=== PATIENT | female | born 1990 | race African-American/Black ===

== ENCOUNTER 2016-08-30 18:11 | Inpatient (IN) ==
--- NOTE | 2016-08-30 18:52 | Emergency Department Note ---
Arrival - Arrival Chief Complaint: Non-Specific Stated Complaint: WHITE PART EYES ARE YELLOW/DARK URINE ED Nursing Triage Note: reports that she noticed this morning that the whites of her eyes were yellow. eyes are noted slightly yellow in triage. pt reports no appetite for four days but no other s/s Mode of Arrival: Ambulatory Limitations: No Limitations Source: Patient Time Seen by Provider: 08/30/16 18:44 - History of Present Illness HPI Narrative: This is a 25-year-old white female who is complaining of the whites of her eyes being yellow that she noticed this morning, and she states that her urine is dark. She states that she has had a loss of appetite for about the last 4 days , but denies any vomiting or abdominal pain. She did state that she had one episode of diarrhea today. She denies any fevers, any liver disease or any other problems. Onset (ago): day(s) (4) Severity: mild Date of Last Menstrual Period: 07/30/16 Allergies/Adverse Reactions: Allergies Allergy/AdvReac Type Severity Reaction Status Date / Time No Known Allergies Allergy Verified 08/31/14 11:21 Home Medications: Home Medications Medication Instructions Recorded Confirmed Type No Known Home Medications [No 08/30/16 08/30/16 History Known Home Medications] Review of System - Review of System 12 point system: reviewed and no additional remarkable complaints except as stated - Review of System Constitutional: Present: as per HPI. Absent: fever Eyes: Present: as per HPI Gastrointestinal: Present: as per HPI, diarrhea Genitourinary female: Present: as per HPI Medical,Surgical,& Family Hx - Social History Smoking Status: Never smoker Exam Physical Examination: - General General appearance: [alert, in no apparent distress] - Head Head exam: [Present: atraumatic, normocephalic, normal inspection] - Eye Eye exam: [Present: mildly icteric, PERRL, EOMI] - ENT ENT exam: [Present: normal exam, normal oropharynx, mucous membranes moist, TM' s normal bilaterally, normal external ear exam] - Neck Neck exam: [Present: normal inspection, full ROM, trachea midline] - Chest Chest inspection: [Present: normal inspection, symmetric chest wall rise] - Respiratory Respiratory exam: [Present: normal lung sounds bilaterally] - Cardiovascular Cardiovascular exam: [Present: regular rate, normal rhythm, normal heart sounds] - Abdominal Exam Abdominal exam: [Present: soft, normal bowel sounds, there is no pain on palpation] - Extremities Exam Extremities exam: [Present: normal inspection, full ROM] - Back Exam Back exam: [Present: normal inspection, full ROM] - Neurological Exam Neurological exam: [Present: alert, oriented X3] - Psychiatric Psychiatric exam: [Present: normal affect, normal mood] - Skin Skin exam: [Present: warm, dry, intact, normal color] Vital Signs: Vital Signs Temperature 97.4 F L 08/30/16 18:34 Pulse Rate 69 08/30/16 19:46 Respiratory Rate 20 08/30/16 19:46 Blood Pressure 120/86 08/30/16 19:46 O2 Sat by Pulse Oximetry 100 08/30/16 19:46 Course - Consultations Consultation #1: I spoke with hospitalist services about this patient and Dr Hopper will see the patient in nonurgent Time: 19:51 (Dr Hopper here at 2000) Results - Labs CBC & BMP: 08/30/16 19:03 08/30/16 19:03 Lab Results: I have reviewed the patients labs Disposition Clinical Impression: ALT (SGPT) level raised, UTI (urinary tract infection) Case discussed with: patient Disposition: Still a Patient
[2016-08-30 19:10] LABS: Basophils % 0.5 % (0.0-0.8); Eosinophils # 0.1 10*3/uL (0.0-0.87); Hematocrit 33.9 VOL% (35.7-47.0); Hemoglobin 10.9 GM/DL (12.0-16.0); Immature Granulocytes % 0.5 %; Immature Granulocytes Absolute 0.02 #; Lymphocytes # 1.6 10*3/uL (1.4-4.0); Lymphocytes % 36.3 % (21.3-54.2); Mean Corpuscular HGB Conc 32.2 GM/DL (32-36); Mean Corpuscular Hemoglobin 28 PG (27-34); Mean Corpuscular Volume 86.7 FL (87-102); Mean Platelet Volume 11.5 FL (9.6-12.0); Monocytes # 0.3 10*3/uL (0.11-0.8); Monocytes % 7.8 % (1.7-12.7); Neutrophils # 2.3 10*3/uL (1.4-7.4); Neutrophils % 51.9 % (38.7-73.9); Platelet Count 239 T/CUMM (130-400); Red Blood Count 3.91 MC/CUMM (3.8-5.5); Red Cell Distribution Width 16.6 % (9.3-17.3); White Blood Count 4.4 T/CUMM (4-12)
[2016-08-30 19:15] LABS: Apearance,Urine Slightly Hazy (Clear); Bacteria,Urine Moderate /HPF (Few); Blood, Urine Negative (Negative); Glucose,Urine (UA) Negative (Negative); Ketones,Urine 20 mg/dL (Negative); Mucus,Urine Occasional /LPF (Occasional); Nitrite,Urine Negative (Negative); Protein,Urine Negative; RBC,Urine 2 /HPF (0-4); Squamous Epithelial Cell,Urine Few /HPF (0-10); Transitional Epi Cells,Urine Occasional /HPF (<1); Urine Color Amber (Yellow); WBC,Urine 5 /HPF (0-6)
[2016-08-30 19:17] LABS: Bilirubin,Urine Moderate mg/dL (Negative)
[2016-08-30 19:32] LABS: Albumin 3.4 G/DL (3.4-5.0); Bilirubin,Total 6.6 MG/DL (0.2-1.0); Calcium 9.4 MG/DL (8.5-10.1); Osmolality,Calculated 270.8 MOS/KG (273-304); Potassium 3.7 MMOL/L (3.5-5.1); Total Protein 7.9 G/DL (6.4-8.3)
[2016-08-30 20:09] LABS: PT Patient Result 10.3 SECS; Partial Thromboplastin Time 30.1 SECS (0-40)
[2016-08-30 20:29] LABS: Barbiturates Screen,Urine Negative (Negative); Benzodiazepines Screen,Urine Negative (Negative); Cannabinoid Screen,Urine Negative (Negative); Opiate Screen,Urine Negative (Negative); Phencyclidine Screen,Urine Negative (Negative)
--- NOTE | 2016-08-30 20:29 | Hospitalist History & Physical ---
Assessment and Plan (1) Elevated liver enzymes Status: Acute Assessment and plan: PBC vs sarcoidosis vs obstruction vs tylenol misuse. AMA, leonela level, cxr, heptatis panel, acetaminophen level, Dr. Sinclair, Current Visit: Yes (2) Total bilirubin, elevated Status: Acute Assessment and plan: elevated direct bilirubin, abdomen us ordered Current Visit: Yes (3) Anemia Status: Acute Assessment and plan: iron studies Current Visit: Yes (4) Snoring Status: Acute Assessment and plan: most likely has asa Current Visit: Yes (5) Migraine Status: Acute Assessment and plan: due to asa Current Visit: Yes (6) UTI (urinary tract infection) Status: Acute Assessment and plan: rocephin IV Current Visit: Yes History of Present Illness Chief complaint: jaundice History of present illness: Ms. Cardoza is a 25 year obese black emale who is complaining of the whites of her eyes being yellow that she noticed over the last 5 days. Her started turning dark yellow yesterday. She has had nausea over the last several days without a good appetite. She takes acetaminophen 1000 mg po daily for migraine heads. She reports fatigue, migraine and snores. She is morbidly obese. Home Medications Medication Instructions Recorded Confirmed Type No Known Home Medications [No 08/30/16 08/30/16 History Known Home Medications] Allergies Allergy/AdvReac Type Severity Reaction Status Date / Time No Known Allergies Allergy Verified 08/31/14 11:21 Medical,Surgical,& Family Hx - Medical History Respiratory: History of: Obstructive Sleep Apnea Hematology: History of: Anemia Other: History of: Miscellaneous Medical Problems (transfusion in 2014 ) - Surgical History Reproductive Surgeries: Surgical HX of;: Section, Tubal Ligation - Family History Family History: Reports;: Family Diabetes, Family Stroke Denies;: Family Cancer - Social History Smoking Status: Never smoker Frequency of Alcohol Use: None Type of Drug Use: None Marital Status: Lives With:: Spouse Functional capacity: independent ambulation - Constitutional Constitutional: Present: fatigue, headache(s). Absent: fever(s) - EENT Eyes: Absent: blurry vision, diplopia Ears: Absent: decreased hearing, ear discharge Nose, mouth and throat: Present: headache(s). Absent: sore throat - Cardiovascular Cardiovascular: Absent: chest pain at rest, dyspnea, edema - Respiratory Respiratory: Present: snoring. Absent: dyspnea, dyspnea on exertion - Gastrointestinal Gastrointestinal: Present: diarrhea, nausea, jaundice. Absent: abdominal pain, constipation, vomiting - Genitourinary Genitourinary: Present: other (urine dark ). Absent: difficulty urinating, dysuria - Neurological Neurological: Present: headache(s). Absent: syncope - Psychiatric Psychiatric: Present: depression. Absent: anxiety - Endocrine Endocrine: Present: fatigue, heat intolerance - Hematologic/Lymphatic Hematologic/Lymphatic: Present: easy bleeding, easy bruising Exam - Constitutional Vitals: Period Temp Pulse Resp BP Sys/Silvestre Pulse Ox Last 24 Hr 97.4 F 69-79 18-20 120-136/83-86 99-100 General appearance: no acute distress, morbidly obese - Head Head exam: Present: normal inspection, normocephalic - Eye Eye exam: Present: EOMI, scleral icterus Pupils: Present: HANNAH, normal accommodation - Neck Neck exam: Absent: lymphadenopathy, thyromegaly - Respiratory Respiratory exam: Present: clear to auscultation bilaterally. Absent: rhonchi, wheezes - Cardiovascular Cardiovascular exam: Present: regular rate and rhythm. Absent: systolic murmur - GI/Abdominal GI/Abdominal exam: Present: normal bowel sounds, soft. Absent: organomegaly, tenderness - Extremities Exam Extremities exam: Present: normal inspection, normal capillary refill - Neurological Exam Neurological exam: Present: alert, oriented X3, CN II-XII intact, reflexes normal. Absent: motor sensory deficit - Psychiatric Psychiatric exam: Present: normal affect, normal mood - Skin Skin exam: Present: normal color, warm Results - Labs CBC & BMP: 08/30/16 19:03 08/30/16 19:03 Lab Results: I have reviewed the past 24 hour labs
--- NOTE | 2016-08-30 20:48 | Ultrasound Report ---
History: Elevated liver enzymes. Elevated bilirubin Date: 08/30/2016 Study: Abdominal ultrasound complete Comparison exam: No previous Real-time ultrasound images are captured and archived. There is no aortic aneurysm. IVC is generally patent. There is hepatopedal flow in the portal vein. There are numerous highly echogenic foci with posterior acoustic shadowing compatible with gallstones in the lumen of the gallbladder. There is no sonographic Martínez sign. There is some mild intrahepatic biliary ectasia. The common bile duct measures 6 mm diameter. There are some highly echogenic foci with posterior acoustic shadowing compatible with choledochal stones in the lumen of the gallbladder. The liver measures normal in size at 15.0 cm length. The pancreas and kidneys appear normal. The right kidney measures 10.7 cm length; the left measures 12.0 cm. The spleen measures 11.1 x 4.0 x 3.4 cm and appears normal. Impression: Cholelithiasis and choledocholithiasis PROCEDURE INTERPRETED AT [facility] DEPARTMENT OF RADIOLOGY Final Report Signed by: Dr. Marily Trivedi
[2016-08-30 20:58] LABS: % Iron Saturation 24.7 % (18-50); Ferritin 43.3 ng/ml (8-252)
--- NOTE | 2016-08-30 21:21 | XRay Report ---
History: Sarcoidosis Date: 08/30/2016 Study: Chest x-ray PA and lateral Comparison exam: No previous The cardiomediastinal silhouette and pulmonary vasculature are unremarkable. The lungs and pleural spaces are clear. The osseous structures are unremarkable. Impression: No acute cardiopulmonary process PROCEDURE INTERPRETED AT [facility] DEPARTMENT OF RADIOLOGY Final Report Signed by: Dr. Marily Trivedi
[2016-08-30 21:31] LABS: Hepatitis A Ab IgM Quant 0.06 Index; Hepatitis A Ab IgM Result Negative (Negative); Hepatitis B Core IgM Quant 0.24 Index; Hepatitis B Core IgM Result Negative (Negative); Hepatitis B Surface Ag Quant 0.28 Index; Hepatitis B Surface Ag Result Negative (Negative); Hepatitis C Virus Ab Quant 0.12 Index; Hepatitis C Virus Ab Result Negative (Negative)
[2016-08-30] MEDS: cefTRIAXone 1,000 MG in SODIUM CHLORIDE 0.9% 100 ML IV SCH (22:15)
[2016-08-30] MEDS: SODIUM CHLORIDE 0.45% 1,000 ML IV SCH (23:08)
[2016-08-30 23:33] LABS: Thyroid Stimulating Hormone 1.62 uIU/ml (0.358-3.74)
[2016-08-31 00:18] LABS: HIV Antigen/Antibody Result Nonreactive (Nonreactive)
[2016-08-31 05:06] LABS: Basophils % 0.6 % (0.0-0.8); Eosinophils # 0.1 10*3/uL (0.0-0.87); Eosinophils % 3.4 % (0.00-10.9); Hematocrit 32.8 VOL% (35.7-47.0); Hemoglobin 10.6 GM/DL (12.0-16.0); Immature Granulocytes % 0.6 %; Immature Granulocytes Absolute 0.02 #; Lymphocytes # 1.5 10*3/uL (1.4-4.0); Lymphocytes % 40.8 % (21.3-54.2); Mean Corpuscular HGB Conc 32.3 GM/DL (32-36); Mean Corpuscular Hemoglobin 28 PG (27-34); Mean Corpuscular Volume 85.2 FL (87-102); Mean Platelet Volume 11.9 FL (9.6-12.0); Monocytes # 0.4 10*3/uL (0.11-0.8); Monocytes % 9.8 % (1.7-12.7); Neutrophils # 1.6 10*3/uL (1.4-7.4); Neutrophils % 44.8 % (38.7-73.9); Platelet Count 226 T/CUMM (130-400); Red Blood Count 3.85 MC/CUMM (3.8-5.5); Red Cell Distribution Width 16.6 % (9.3-17.3); White Blood Count 3.6 T/CUMM (4-12)
[2016-08-31 05:34] LABS: Albumin 2.9 G/DL (3.4-5.0); Bilirubin,Total 5.8 MG/DL (0.2-1.0); Calcium 8.9 MG/DL (8.5-10.1); Osmolality,Calculated 268.8 MOS/KG (273-304); Potassium 3.7 MMOL/L (3.5-5.1); Total Protein 6.3 G/DL (6.4-8.3)
[2016-08-31] MEDS: SODIUM CHLORIDE 0.45% 1,000 ML IV SCH ×2 (07:35→16:28)
--- NOTE | 2016-08-31 08:30 | Gastrointestinal Consult Note ---
Assessment and Plan (1) Choledocholithiasis with obstruction Status: Acute Assessment and plan: This patient has sonographic evidence of common bile duct dilation, and biochemical evidence of obstruction as well although this appears to be improving over the weekend. There is gallbladder lumen sludge noted and a common bile duct of 6 mm. The patient is having no abdominal pain whatsoever. I believe she likely has chronic cholecystitis and does need to have her gallbladder removed in order to keep episodes like this from occurring again in the future. The liver function tests are slowly resolving. She has been offered discharge and follow-up ERCP with further follow-up for cholecystectomy but wishes to stay through the long holiday weekend and have her workup expedited with ERCP on Friday and cholecystectomy to follow at some point. I do not do ERCPs and so we will wait until that date for Dr. Bernal to perform this, Dr. Jo Ann Tsai is education program associate this weekend and will be consulted for the cholecystectomy. Current Visit: Yes (2) Elevated liver enzymes Status: Acute Assessment and plan: The patient does not use IV drugs, her hepatitis A, B, and C are all negative, there is no family history of liver derangements that she knows of. She does not have hemochromatosis, we will will check her for lupus to see if her HAMLET is elevated to rule out autoimmune hepatitis. This typically does not produce dilation of the common bile duct though and I do not suspect that it is present but her liver function tests are so elevated it seems reasonable to check. Again plan is ERCP on Friday with cholecystectomy to follow, per Dr. Cherry. Again this can be managed as an outpatient should the patient desired discharge. Low-fat diet seems appropriate as she is pain-free. We will follow serial liver function testing. Current Visit: Yes (3) Obesity (BMI 35.0-39.9 without comorbidity) Status: Acute Assessment and plan: The patient needs to lose some weight. The patient is already been checked for and is negative which will facilitate the ERCP. Current Visit: Yes History of Present Illness Chief complaint: Painless jaundice caused by choledocholithiasis History of present illness: Ms. Cardoza is a 25 year old female who is a very pleasant 25-year-old black female who is moderately obese and has been noticing nausea over the last 5 days along with 3 days of dark urine and 3 days of her eyes turning yellow. She does not have any abdominal pain. She is not aware of any other family members who have gallbladder resection. She does take Tylenol per day for her migraine headaches. She has not had any history of IV drug abuse, history of travel to [place] or [place], no tattoos or accidental needle sticks, and has never had an episode like this before. There is no family history of liver disease that she knows of. She has had 4 children already. Laboratories demonstrate the following: Normal white blood cell count at 3.6. INR of 1.0, normal kidney function, iron saturation 25%, negative hepatitis A, B, and C panel, negative urine drug screen, ALT of 731 at peak, AST of 533, alkaline phosphatase of 735, and total bilirubin is 6.6 with a direct fraction of 5.6. Her HIV panel is negative. We still need to check this patient for lupus. Abdominal ultrasound shows a sonographic negative Martínez sign however liver is slightly enlarged at 15 cm with a normal-appearing pancreas and kidney and common bile duct measures 6 mm in diameter numerous highly echogenic foci are noted with posterior shadowing compatible with gallstones. The impression was 1 of choledocholithiasis and cholelithiasis. Judging from the appearance of her eyes today it appears that she is clearing the ductal blockage. Again she has 0/10 abdominal pain. Home Medications Medication Instructions Recorded Confirmed Type No Known Home Medications [No 08/30/16 08/30/16 History Known Home Medications] Allergies Allergy/AdvReac Type Severity Reaction Status Date / Time No Known Allergies Allergy Verified 08/31/14 11:21 Medical,Surgical,& Family Hx - Medical History Respiratory: History of: Obstructive Sleep Apnea Hematology: History of: Anemia Other: History of: Miscellaneous Medical Problems (transfusion in 2015 ) - Surgical History Reproductive Surgeries: Surgical HX of;: Section, Tubal Ligation - Family History Family History: Reports;: Family Diabetes (father), Family Hypertension (mother) , Family Stroke Denies;: Family Cancer - Social History Smoking Status: Never smoker Frequency of Alcohol Use: None Type of Drug Use: None Review of systems: Constitutional: Denies fever, chills, but does have some mild nausea, without vomiting, she is having some pruritus leading to scratches on her thighs Eyes: Denies dry eyes, however she does have scleral icterus HENT: Positive for migraine headaches Cardiovascular: Denies acute chest pain and claudication Respiratory: Denies shortness of breath, wheezing, and difficulty breathing, denies cough Gastrointestinal: As noted in the HPI Genitourinary: Denies dysuria and hematuria Neurologic: Denies vision loss, and loss of sensation Musculoskeletal: Denies joint swelling, joint stiffness, and muscular weakness Psychiatric: Denies depression and yamilex symptoms Heme-Lymph: Denies easy bruising, lymph node enlargement or tenderness, night sweats, excessive bleeding Allergies-immunologic: Denies pruritus and rhinorrhea Exam - Constitutional Vitals: Period Temp Pulse Resp BP Sys/Silvestre Pulse Ox Last 24 Hr 97.4 F-98.0 F 59-79 16-20 120-136/62-86 96-100 General appearance: over weight Exam: Constitutional: Well-developed, well-nourished, alert, and in no acute distress Head and face: Head: Normocephalic atraumatic Eyes: Conjunctiva without injection, the patient does have some evidence of scleral icterus, although this is milder than I would have expected , pupils equal and round bilaterally Ears: Intact to conversation in both ears Nose: External appearance is normal, nares patent Mouth: Oral mucous membranes moist without erythema dentition noted to be without erosion Neck: Normal appearance, no masses or tenderness, trachea midline Thyroid: Gland midline and appropriate size for age Respiratory: Normal respiratory effort, clear to auscultation without wheezes, rhonchi or rales Cardiovascular: Regular rate and rhythm, normal S1, S2, the exam is without rubs, murmurs or gallops. Gastrointestinal: Nontender to palpation, normal active bowel sounds, tone normal without rigidity or guarding, no masses present, no hepatomegaly, no spleen tip felt. Stool was present but grossly guaiac negative on rectal exam obtained, good tone. Lymphatic: Neck without adenopathy, axilla without lymphadenopathy present Musculoskeletal: Right and left lower extremities without evidence of edema Skin and subcutaneous tissue: Excoriation is noted on the bilateral thighs laterally from patient scratching, no rashes or ulcerations noted, normal skin turgor, digits and nails without clubbing/cyanosis/deformities. Neurologic: The patient is grossly oriented to person place and time, cranial nerves show tongue movements are normal with normal tongue extrusion midline, light touch sensation is intact. Psychiatric: No hallucinations or delusions are present, does not appear depressed Results - Labs CBC & BMP: 08/31/16 04:40 08/31/16 04:40
--- NOTE | 2016-08-31 09:04 | Hospitalist Progress Note ---
Assessment and Plan - Time spent with patient Time spent with patient: Less than 30 minutes (1) Choledocholithiasis with obstruction Status: Acute Assessment and plan: Appreciate input from gastroenterology. Will continue current therapy, general surgery has been consulted for possible cholecystectomy and Dr. Bernal for possible ERCP on Friday. Current Visit: Yes (2) UTI (urinary tract infection) Status: Acute Assessment and plan: Urine culture does reveal gram-negative rods. Continue IV antibiotics. Current Visit: Yes Hospitalist: Subjective Interval history: Chart reviewed and patient examined. Gastroenterology consultation noted. Patient is doing well without any further complaints at this time. Exam - Constitutional Vitals: Period Temp Pulse Resp BP Sys/Silvestre Pulse Ox Last 24 Hr 97.4 F-98.0 F 59-79 16-20 120-136/62-86 96-100 General appearance: no acute distress - Head Head exam: Present: normocephalic, atraumatic - Eye Eye exam: Present: EOMI Pupils: Present: HANNAH - ENT ENT exam: Present: normal exam - Neck Neck exam: Present: normal inspection - Respiratory Respiratory exam: Present: clear to auscultation bilaterally - Cardiovascular Cardiovascular exam: Present: regular rate and rhythm. Absent: tachycardia - GI/Abdominal GI/Abdominal exam: Present: normal bowel sounds, soft. Absent: mass, tenderness - Extremities Exam Extremities exam: Absent: calf tenderness, edema - Back Exam Back exam: Present: normal inspection - Neurological Exam Neurological exam: Present: alert, oriented X3, CN II-XII intact. Absent: motor sensory deficit - Psychiatric Psychiatric exam: Present: normal affect, normal mood. Absent: agitated, anxious - Skin Skin exam: Present: warm, dry. Absent: rash Results - Labs CBC & BMP: 08/31/16 04:40 08/31/16 04:40 Lab Results: I have reviewed the past 24 hour labs - Diagnostic Findings Procedure: Ultrasound: report reviewed by me
--- NOTE | 2016-08-31 10:59 | General Surgery Consult Note ---
Assessment and Plan - Time spent with patient Time spent with patient: Less than 30 minutes (1) Choledocholithiasis with obstruction Status: Acute Assessment and plan: She appears to have biliary obstruction causing her jaundice. She is largely asymptomatic other than the jaundice. There does not appear to be associated cholangitis. I discussed the role of cholecystectomy which would be done to prevent recurrences after her ERCP. I do not see a role for cholecystectomy prior to ERCP in this case. Current Visit: Yes Qualifiers: Cholecystitis presence: without cholecystitis Qualified Code(s): K80.51 - Calculus of bile duct without cholangitis or cholecystitis with obstruction History of Present Illness Chief complaint: Jaundice History of present illness: Ms. Cardoza is a 25 year old female Who came to the emergency room because she noticed her eyes turning yellow. She states that she has not really had abdominal pain. She has not really been feeling well. She does not know of any aggravating or alleviating factors had fever or chills. She has had dark urine. She had an ultrasound which showed gallstones and also a dilated common bile duct with a stone in her bile duct. She has elevated liver function test. She has been seen by GI and there are plans for an ERCP Home Medications Medication Instructions Recorded Confirmed Type No Known Home Medications [No 08/30/16 08/30/16 History Known Home Medications] Allergies Allergy/AdvReac Type Severity Reaction Status Date / Time No Known Allergies Allergy Verified 08/31/14 11:21 Medical,Surgical,& Family Hx - Medical History Respiratory: History of: Obstructive Sleep Apnea Hematology: History of: Anemia Other: History of: Miscellaneous Medical Problems (transfusion in 2014 ) - Surgical History Reproductive Surgeries: Surgical HX of;: Section, Tubal Ligation - Family History Family History: Reports;: Family Diabetes (father), Family Hypertension (mother) , Family Stroke Denies;: Family Cancer - Social History Smoking Status: Never smoker Frequency of Alcohol Use: None Type of Drug Use: None - Constitutional Constitutional: Absent: anorexia, chills, fever(s) - EENT Nose, mouth and throat: Absent: dysphagia, sore throat - Cardiovascular Cardiovascular: Absent: chest pain at rest, chest pain with activity, dyspnea, dyspnea on exertion, syncope - Respiratory Respiratory: Absent: cough, dyspnea, hemoptysis, dyspnea on exertion - Gastrointestinal Gastrointestinal: Present: jaundice. Absent: abdominal pain, bloating, hematemesis, hematochezia, nausea, vomiting - Genitourinary Genitourinary: Absent: hematuria - Musculoskeletal Musculoskeletal: Absent: back pain - Neurological Neurological: Absent: focal weakness, syncope - Endocrine Endocrine: Absent: polyuria Hematologic/Lymphatic: Absent: easy bruising Exam - Constitutional Vitals: Period Temp Pulse Resp BP Sys/Silvestre Pulse Ox Last 24 Hr 97.1 F-98.0 F 59-79 16-20 104-136/49-86 96-100 General appearance: no acute distress, morbidly obese - Head Head exam: Present: normocephalic - Eye Eye exam: Present: scleral icterus - ENT Mouth exam: Present: normal voice - Neck Neck exam: Present: trachea midline. Absent: tenderness - Respiratory Respiratory exam: Present: clear to auscultation bilaterally. Absent: accessory muscle use - Cardiovascular Cardiovascular exam: Present: RRR - GI/Abdominal GI/Abdominal exam: Present: soft. Absent: distended, guarding, mass, Martínez's sign, tenderness, rebound - Neurological Exam Neurological exam: Present: alert, oriented X3. Absent: motor sensory deficit Speech: Present: normal - Skin Skin exam: Present: normal color Results - Labs CBC & BMP: 08/31/16 04:40 08/31/16 04:40 Lab Results: I have reviewed the past 24 hour labs - Diagnostic Findings Procedure: Ultrasound: report reviewed by me
[2016-08-31] MEDS: ONDANSETRON 4 MG/2 ML VIAL IV PRN (21:13)
[2016-08-31] MEDS: cefTRIAXone 1,000 MG in SODIUM CHLORIDE 0.9% 100 ML IV SCH (21:16)
[2016-08-31] MEDS ORDERED: diphenhydrAMINE CAP 50 MG CAPSULE PO PRN (21:23)
--- NOTE | 2016-08-31 21:50 | Event Note ---
I was called to get the order Benadryl for itching for itching. I have ordered the Benadryl 20 mg p.o. as needed for itching but noted patient is admitted for obstructive jaundice I have ordered cholestyramine 4 g daily may need to be titrated
[2016-09-01] MEDS: SODIUM CHLORIDE 0.45% 1,000 ML IV SCH ×4 (00:20→23:38)
[2016-09-01 05:54] LABS: Albumin 2.8 G/DL (3.4-5.0); Calcium 8.9 MG/DL (8.5-10.1); Osmolality,Calculated 273.5 MOS/KG (273-304); Potassium 3.9 MMOL/L (3.5-5.1); Total Protein 6.3 G/DL (6.4-8.3)
[2016-09-01 05:55] LABS: Albumin 2.9 G/DL (3.4-5.0); Bilirubin,Indirect 1.2 MG/DL (0.0-1.0); Bilirubin,Total 5.2 MG/DL (0.2-1.0); Total Protein 6.4 G/DL (6.4-8.3)
[2016-09-01] MEDS: diphenhydrAMINE CAP 25 MG CAPSULE PO PRN ×2 (08:22→21:25)
[2016-09-01] MEDS: CHOLESTYRAMINE 4 GM PACK PO SCH (08:22)
--- NOTE | 2016-09-01 08:33 | Hospitalist Progress Note ---
Assessment and Plan - Time spent with patient Time spent with patient: Less than 30 minutes (1) Choledocholithiasis with obstruction Status: Acute Assessment and plan: Appreciate input from gastroenterology. Will continue current therapy, general surgery has been consulted for possible cholecystectomy and Dr. Bernal for possible ERCP on Friday. 09/01/16: Continuing current therapy and awaiting ERCP on Friday. Appreciate input from gastroenterology and general surgery. Current Visit: Yes Qualifiers: Cholecystitis presence: without cholecystitis Qualified Code(s): K80.51 - Calculus of bile duct without cholangitis or cholecystitis with obstruction (2) UTI (urinary tract infection) Status: Acute Assessment and plan: Urine culture does reveal gram-negative rods. Continue IV antibiotics. Awaiting final ID and sensitivity. Current Visit: Yes Hospitalist: Subjective Interval history: Patient had a mild headache as well as some itching last night which is essentially resolved. She denies any abdominal pain, nausea, vomiting, diarrhea , constipation. Appetite is somewhat decreased but she is tolerating her diet. Exam - Constitutional Vitals: Period Temp Pulse Resp BP Sys/Silvestre Pulse Ox Last 24 Hr 97.6 F-98.5 F 54-90 16-18 98-116/54-83 98-100 General appearance: no acute distress - Head Head exam: Present: normocephalic, atraumatic - Eye Eye exam: Present: EOMI Pupils: Present: HANNAH - ENT ENT exam: Present: normal exam - Neck Neck exam: Present: normal inspection - Respiratory Respiratory exam: Present: clear to auscultation bilaterally - Cardiovascular Cardiovascular exam: Present: regular rate and rhythm - GI/Abdominal GI/Abdominal exam: Present: normal bowel sounds, soft. Absent: mass, tenderness - Extremities Exam Extremities exam: Absent: calf tenderness, edema - Back Exam Back exam: Present: normal inspection - Neurological Exam Neurological exam: Present: alert, oriented X3, CN II-XII intact. Absent: motor sensory deficit - Psychiatric Psychiatric exam: Present: normal affect, normal mood. Absent: agitated, anxious - Skin Skin exam: Present: warm, dry. Absent: rash Results - Labs CBC & BMP: 08/31/16 04:40 09/01/16 04:50 Lab Results: I have reviewed the past 24 hour labs
--- NOTE | 2016-09-01 09:46 | Gastrointestinal Progress Note ---
Assessment and Plan (1) Choledocholithiasis with obstruction Status: Acute Assessment and plan: This patient has sonographic evidence of common bile duct dilation, and biochemical evidence of obstruction as well although this appears to be improving over the weekend. There is gallbladder lumen sludge noted and a common bile duct of 6 mm. The patient is having no abdominal pain whatsoever. I believe she likely has chronic cholecystitis and does need to have her gallbladder removed in order to keep episodes like this from occurring again in the future. The liver function tests are slowly resolving. She has been offered discharge and follow-up ERCP with further follow-up for cholecystectomy but wishes to stay through the long holiday weekend and have her workup expedited with ERCP on Friday and cholecystectomy to follow at some point. I do not do ERCPs and so we will wait until that date for Dr. Bernal to perform this, Dr. Jo Ann Tsai is in home sales consultant this weekend and will be consulted for the cholecystectomy. 09/01/16--Awaiting the return of Dr. Bernal on Friday in order to perform ERCP, to be followed by surgery in the near future. She has no new complaints, otherwise doing well. Current Visit: Yes Qualifiers: Cholecystitis presence: without cholecystitis Qualified Code(s): K80.51 - Calculus of bile duct without cholangitis or cholecystitis with obstruction (2) Elevated liver enzymes Status: Acute Assessment and plan: The patient does not use IV drugs, her hepatitis A, B, and C are all negative, there is no family history of liver derangements that she knows of. She does not have hemochromatosis, we will will check her for lupus to see if her HAMLET is elevated to rule out autoimmune hepatitis. This typically does not produce dilation of the common bile duct though and I do not suspect that it is present but her liver function tests are so elevated it seems reasonable to check. Again plan is ERCP on Friday with cholecystectomy to follow, per Dr. Cherry. Again this can be managed as an outpatient should the patient desired discharge. Low-fat diet seems appropriate as she is pain-free. We will follow serial liver function testing. 09/01/16--These are slowly drifting downward. I suspect they will not be completely normal by the time Friday morning arrives. The patient is due to get her ERCP on 09/03/[address] Bernal. Current Visit: Yes (3) Obesity (BMI 35.0-39.9 without comorbidity) Status: Acute Assessment and plan: The patient needs to lose some weight. The patient is already been checked for and is negative which will facilitate the ERCP. 09/01/16--No change from above. Current Visit: Yes Gastroenterology - PN: Subj Interval history: No complaints, no abdominal pain, never did have any abdominal pain, urine still looks rather dark. Exam (Progress Note) - Constitutional Vitals: Period Temp Pulse Resp BP Sys/Silvestre Pulse Ox Last 24 Hr 97.6 F-98.5 F 54-90 16-18 98-116/54-83 98-100 General appearance: no acute distress - Eye Eye exam: Present: scleral icterus (Slight hint of scleral icterus) Pupils: Present: HANNAH - Respiratory Respiratory exam: Present: clear to auscultation bilaterally - Cardiovascular Cardiovascular exam: Present: regular rate and rhythm - GI/Abdominal GI/Abdominal exam: Present: normal bowel sounds, soft. Absent: distended, tenderness, rebound - Extremities Exam Extremities exam: Present: normal inspection - Neurological Exam Neurological exam: Present: alert, oriented X3 - Psychiatric Psychiatric exam: Present: normal affect, normal mood - Skin Skin exam: Present: warm Results - Labs CBC & BMP: 08/31/16 04:40 09/01/16 04:50
--- NOTE | 2016-09-01 10:14 | General Surgery Progress Note ---
Assessment and Plan (1) Choledocholithiasis with obstruction Status: Acute Assessment and plan: She appears to have biliary obstruction causing her jaundice. She is largely asymptomatic other than the jaundice. There does not appear to be associated cholangitis. I discussed the role of cholecystectomy which would be done to prevent recurrences after her ERCP. I do not see a role for cholecystectomy prior to ERCP in this case. 09/01: She feels better but is itching from her jaundice. She will need an ERCP. Following this we can look at laparoscopic cholecystectomy to prevent recurrences. I do not see evidence of cholangitis at this time. Current Visit: Yes Qualifiers: Cholecystitis presence: without cholecystitis Qualified Code(s): K80.51 - Calculus of bile duct without cholangitis or cholecystitis with obstruction Subjective Patient reports: Present: feels better, pain is less. Absent: nausea, vomiting , shortness of breath, fever Exam - Constitutional Vitals: Period Temp Pulse Resp BP Sys/Silvestre Pulse Ox Last 24 Hr 97.6 F-98.5 F 54-90 16-18 98-116/54-83 98-100 General appearance: no acute distress - Head Head exam: Present: normocephalic - Eye Eye exam: Absent: scleral icterus - Respiratory Respiratory exam: Absent: accessory muscle use - GI/Abdominal GI/Abdominal exam: Present: soft. Absent: distended, tenderness - Neurological Exam Neurological exam: Present: alert, oriented X3. Absent: motor sensory deficit Speech: Present: normal - Skin Skin exam: Present: normal color Results - Labs CBC & BMP: 08/31/16 04:40 09/01/16 04:50 Lab Results: I have reviewed the past 24 hour labs
[2016-09-01] MEDS: cefTRIAXone 1,000 MG in SODIUM CHLORIDE 0.9% 100 ML IV SCH (21:26)
--- NOTE | 2016-09-02 06:49 | General Surgery Progress Note ---
Assessment and Plan (1) Choledocholithiasis with obstruction Status: Acute Assessment and plan: She appears to have biliary obstruction causing her jaundice. She is largely asymptomatic other than the jaundice. There does not appear to be associated cholangitis. I discussed the role of cholecystectomy which would be done to prevent recurrences after her ERCP. I do not see a role for cholecystectomy prior to ERCP in this case. 09/01: She feels better but is itching from her jaundice. She will need an ERCP. Following this we can look at laparoscopic cholecystectomy to prevent recurrences. I do not see evidence of cholangitis at this time. 09/02: She feels better and has no abdominal pain this morning. She is for ERCP tomorrow. We can discuss laparoscopic cholecystectomy after this. I did discuss the role of laparoscopic cholecystectomy and preventing recurrences of this problem. Current Visit: Yes Qualifiers: Cholecystitis presence: without cholecystitis Qualified Code(s): K80.51 - Calculus of bile duct without cholangitis or cholecystitis with obstruction Subjective Patient reports: Present: feels better, pain is less. Absent: nausea, vomiting , fever Exam - Constitutional Vitals: Period Temp Pulse Resp BP Sys/Silvestre Pulse Ox Last 24 Hr 97.2 F-98.1 F 54-62 16-19 98-122/54-80 95-99 General appearance: no acute distress - Eye Eye exam: Absent: scleral icterus - GI/Abdominal GI/Abdominal exam: Present: soft. Absent: distended, Martínez's sign, tenderness , rebound Results - Labs CBC & BMP: 08/31/16 04:40 09/01/16 04:50
--- NOTE | 2016-09-02 07:04 | Gastrointestinal Progress Note ---
Assessment and Plan (1) Choledocholithiasis with obstruction Status: Acute Assessment and plan: This patient has sonographic evidence of common bile duct dilation, and biochemical evidence of obstruction as well although this appears to be improving over the weekend. There is gallbladder lumen sludge noted and a common bile duct of 6 mm. The patient is having no abdominal pain whatsoever. I believe she likely has chronic cholecystitis and does need to have her gallbladder removed in order to keep episodes like this from occurring again in the future. The liver function tests are slowly resolving. She has been offered discharge and follow-up ERCP with further follow-up for cholecystectomy but wishes to stay through the long holiday weekend and have her workup expedited with ERCP on Friday and cholecystectomy to follow at some point. I do not do ERCPs and so we will wait until that date for Dr. Bernal to perform this, Dr. Jo Ann Tsai is multimedia educational specialist this weekend and will be consulted for the cholecystectomy. 09/01/16--Awaiting the return of Dr. Bernal on Friday in order to perform ERCP, to be followed by surgery in the near future. She has no new complaints, otherwise doing well. 09/02/16--Awaiting ERCP on Friday with Dr. Bernal. Cholecystectomy to follow by Dr. Cherry possibly Friday or . LFTs planned for tomorrow. Current Visit: Yes Qualifiers: Cholecystitis presence: without cholecystitis Qualified Code(s): K80.51 - Calculus of bile duct without cholangitis or cholecystitis with obstruction (2) Elevated liver enzymes Status: Acute Assessment and plan: The patient does not use IV drugs, her hepatitis A, B, and C are all negative, there is no family history of liver derangements that she knows of. She does not have hemochromatosis, we will will check her for lupus to see if her HAMLET is elevated to rule out autoimmune hepatitis. This typically does not produce dilation of the common bile duct though and I do not suspect that it is present but her liver function tests are so elevated it seems reasonable to check. Again plan is ERCP on Friday with cholecystectomy to follow, per Dr. Cherry. Again this can be managed as an outpatient should the patient desired discharge. Low-fat diet seems appropriate as she is pain-free. We will follow serial liver function testing. 09/01/16--These are slowly drifting downward. I suspect they will not be completely normal by the time Friday morning arrives. The patient is due to get her ERCP on 09/03/[address] Bernal. 09/02/16--LFTs from today have not returned yet. ERCP tomorrow. Current Visit: Yes (3) Obesity (BMI 35.0-39.9 without comorbidity) Status: Acute Assessment and plan: The patient needs to lose some weight. The patient is already been checked for and is negative which will facilitate the ERCP. 09/01/16--No change from above. 09/02/16--Weight loss advised. Current Visit: Yes Gastroenterology - PN: Subj Interval history: The patient is waiting for her ERCP to occur tomorrow. She has mild nausea she has some vague itching but otherwise is doing fairly well. Her lab values up to this point have been dropping steadily albeit slowly. Exam (Progress Note) - Constitutional Vitals: Period Temp Pulse Resp BP Sys/Silvestre Pulse Ox Last 24 Hr 97.2 F-98.1 F 54-62 16-19 98-122/54-80 95-99 General appearance: no acute distress, over weight - Eye Eye exam: Present: EOMI, scleral icterus - ENT ENT exam: Present: normal exam - Respiratory Respiratory exam: Present: clear to auscultation bilaterally - Cardiovascular Cardiovascular exam: Present: regular rate and rhythm - GI/Abdominal GI/Abdominal exam: Present: normal bowel sounds, soft. Absent: distended, guarding, tenderness - Extremities Exam Extremities exam: Present: full ROM - Neurological Exam Neurological exam: Present: alert, oriented X3 - Psychiatric Psychiatric exam: Present: normal affect, normal mood - Skin Skin exam: Present: warm Results - Labs CBC & BMP: 08/31/16 04:40 09/01/16 04:50
[2016-09-02 07:46] LABS: Bilirubin,Direct 4.2 MG/DL (0.0-0.20); Bilirubin,Indirect 0.9 MG/DL (0.0-1.0); Bilirubin,Total 5.1 MG/DL (0.2-1.0); Total Protein 6.7 G/DL (6.4-8.3)
[2016-09-02 07:47] LABS: Bilirubin,Total 5.1 MG/DL (0.2-1.0); Calcium 9.1 MG/DL (8.5-10.1); Osmolality,Calculated 270.7 MOS/KG (273-304); Total Protein 6.7 G/DL (6.4-8.3)
--- NOTE | 2016-09-02 08:20 | Hospitalist Progress Note ---
Assessment and Plan - Time spent with patient Time spent with patient: Less than 30 minutes (1) Choledocholithiasis with obstruction Status: Acute Assessment and plan: Appreciate input from gastroenterology. Will continue current therapy, general surgery has been consulted for possible cholecystectomy and Dr. Bernal for possible ERCP on Friday. 09/01/16: Continuing current therapy and awaiting ERCP on Friday. Appreciate input from gastroenterology and general surgery. 09/02/16: ERCP planned for Friday. Continue current care. Current Visit: Yes Qualifiers: Cholecystitis presence: without cholecystitis Qualified Code(s): K80.51 - Calculus of bile duct without cholangitis or cholecystitis with obstruction (2) UTI (urinary tract infection) Status: Acute Assessment and plan: Urine culture does reveal gram-negative rods. Continue IV antibiotics. Awaiting final ID and sensitivity. 09/02/16: Urine culture revealed Klebsiella oxytoca sensitive to current antibiotic regimen which we will continue. Current Visit: Yes Qualifiers: Urinary tract infection type: acute cystitis Hospitalist: Subjective Interval history: Patient states she has some very mild pain in the right upper quadrant has had some mild nausea but otherwise tolerating her diet. She has no other complaints at this time Exam - Constitutional Vitals: Period Temp Pulse Resp BP Sys/Silvestre Pulse Ox Last 24 Hr 97.2 F-98.1 F 56-62 16-19 101-122/54-80 95-99 General appearance: no acute distress - Head Head exam: Present: normocephalic, atraumatic - Eye Eye exam: Present: EOMI Pupils: Present: HANNAH - ENT ENT exam: Present: normal exam - Neck Neck exam: Present: normal inspection - Respiratory Respiratory exam: Present: clear to auscultation bilaterally - Cardiovascular Cardiovascular exam: Present: regular rate and rhythm - GI/Abdominal GI/Abdominal exam: Present: normal bowel sounds, soft. Absent: tenderness - Extremities Exam Extremities exam: Absent: calf tenderness, edema - Back Exam Back exam: Present: normal inspection - Neurological Exam Neurological exam: Present: alert, oriented X3, CN II-XII intact. Absent: motor sensory deficit - Psychiatric Psychiatric exam: Present: normal affect, normal mood. Absent: agitated, anxious - Skin Skin exam: Present: warm, dry. Absent: rash Results - Labs CBC & BMP: 08/31/16 04:40 09/02/16 06:27 Lab Results: I have reviewed the past 24 hour labs
[2016-09-02] MEDS: CHOLESTYRAMINE 4 GM PACK PO SCH (09:21)
[2016-09-02] MEDS: SODIUM CHLORIDE 0.45% 1,000 ML IV SCH ×4 (09:21→22:50)
[2016-09-02] MEDS: ONDANSETRON 4 MG/2 ML VIAL IV PRN (09:23)
[2016-09-02] MEDS: MORPHINE 2 MG/1 ML SYRINGE IV PRN ×2 (12:05→21:09)
[2016-09-02] MEDS: cefTRIAXone 1,000 MG in SODIUM CHLORIDE 0.9% 100 ML IV SCH (21:03)
[2016-09-03] MEDS: SODIUM CHLORIDE 0.45% 1,000 ML IV SCH ×5 (01:10→21:31)
[2016-09-03 06:21] LABS: Basophils % 0.8 % (0.0-0.8); Eosinophils # 0.2 10*3/uL (0.0-0.87); Eosinophils % 4.8 % (0.00-10.9); Hematocrit 34.3 VOL% (35.7-47.0); Hemoglobin 11.2 GM/DL (12.0-16.0); Immature Granulocytes % 0.3 %; Immature Granulocytes Absolute 0.01 #; Lymphocytes # 1.6 10*3/uL (1.4-4.0); Lymphocytes % 41.2 % (21.3-54.2); Mean Corpuscular HGB Conc 32.7 GM/DL (32-36); Mean Corpuscular Hemoglobin 28 PG (27-34); Mean Corpuscular Volume 87.1 FL (87-102); Monocytes # 0.3 10*3/uL (0.11-0.8); Monocytes % 7.5 % (1.7-12.7); Neutrophils # 1.8 10*3/uL (1.4-7.4); Neutrophils % 45.4 % (38.7-73.9); Platelet Count 228 T/CUMM (130-400); Red Blood Count 3.94 MC/CUMM (3.8-5.5); Red Cell Distribution Width 17.8 % (9.3-17.3)
[2016-09-03 06:26] LABS: PT Patient Result 10.2 SECS; Partial Thromboplastin Time 28.4 SECS (0-40)
[2016-09-03 06:43] LABS: Bilirubin,Direct 6.2 MG/DL (0.0-0.20); Bilirubin,Indirect 1.1 MG/DL (0.0-1.0); Bilirubin,Total 7.3 MG/DL (0.2-1.0); Total Protein 6.8 G/DL (6.4-8.3)
[2016-09-03] MEDS: CHOLESTYRAMINE 4 GM PACK PO SCH (11:22)
[2016-09-03] MEDS ORDERED: fentaNYL 100 MCG/2 ML VIAL ONE (11:41)
[2016-09-03] MEDS ORDERED: MIDAZOLAM 2 MG/2 ML VIAL ONE (11:41)
[2016-09-03] MEDS ORDERED: LIDOCAINE 2% 5 ML VIAL ONE ×2 (11:45→13:14)
[2016-09-03] MEDS ORDERED: PROPOFOL 200 MG/20 ML VIAL IV ONE ×2 (11:45→13:14)
--- NOTE | 2016-09-03 12:43 | History and Physical Update ---
History and Physical Update - Physical Exam Mental Status: alert and oriented Heart: regular rate and rhythm Lung: clear to auscultation Abdomen: within normal limits Vitals: within normal limits
--- NOTE | 2016-09-03 12:46 | Operative Note ---
Date of procedure: 09/03/16 Pre-op diagnosis: Choledocholithiasis Procedure: Endoscopic retrograde cholangiopancreatography with sphincterotomy and multiple stones extracted and stent placement 25-year-old female admitted with abnormal liver test evidence of biliary obstruction and suspected choledocholithiasis now for ERCP to further evaluate. Informed symptoms obtained the patient She was sedated with MAC anesthesia per anesthesia protocol. Patient placed in prone position the Olympus flexible duodenum scope inserted lower cavity advanced into the esophagus esophagus stomach pylorus duodenum appeared normal. The ampulla appears very prominent suspicious for an impacted stone. Using a sphincterotome we were able to cannulate the pancreatic duct revealing a normal pancreatic duct at the head body tail the pancreas. Subsequently with difficulty we were able to selectively cannulate common bile duct with findings of extensive choledocholithiasis. Cystic duct appears occluded. We were able to perform a sphincterotomy of approximately 10 mm. Multiple stones were noted to be piled up in the distal common bile duct and a total of 15 stones removed with difficulty using an occlusion balloon. At this point it was felt we achieve maximum benefit with significant ampullary trauma it was elected to place a biliary stent for drainage purposes to minimize risk of post ERCP pancreatitis and allow for decreased inflammation and removal of residual stones. Subsequently an 8.5 Nigerien by 7 cm plastic biliary stent was positioned without difficulty. Clear bile was noted to be flowing through the stent at the termination of the procedure. Patient was discharged to recovery in good condition. Postop diagnosis #1 choledocholithiasis-multiple stones removed after sphincterotomy will start Actigall and plan repeat ERCP in approximately 6 weeks. Hopefully at that time we can remove the remaining stones. 2. Occluded cystic duct will need cholecystectomy per surgery. Will discuss with them the option of common duct exploration at that time versus reverting back to our plan for ERCP in 6 weeks. For now we will continue antibiotics. Observe for complications. Anesthesia: MAC Surgeon / Physician: Alek Bernal Estimated blood loss: none Specimens: none sent Condition: stable Disposition: post procedure unit Results - Labs CBC & BMP: 09/03/16 05:56 09/02/16 06:27 Discharge Plan - Discharge Medications No Action No Known Home Medications [No Known Home Medications] - Follow Up or Referral - Forms/Instructions
--- NOTE | 2016-09-03 12:51 | Anesthesia Post-Op ---
Anesthesia Post OP - Post Ansesthetic Evaluation Patient seen in post op: Yes Resp: within normal limits CV: within normal limits Mental: within normal limits Temp: within normal limits [id number]: within normal limits Nausea and Vomiting: within normal limits Pain: within normal limits
[2016-09-03] MEDS ORDERED: ONDANSETRON 4 MG/2 ML VIAL ONE ×2 (13:02→13:14)
[2016-09-03] MEDS ORDERED: DEXAMETHASONE 10 MG/1 ML VIAL ONE (13:14)
[2016-09-03] MEDS ORDERED: KETOROLAC 30 MG/1 ML VIAL ONE (13:14)
[2016-09-03] MEDS ORDERED: ROCURONIUM 100 MG/10 ML VIAL IV ONE (13:14)
[2016-09-03] MEDS ORDERED: PHENYLEPHRINE 1 MG/10 ML SYRINGE IV ONE (13:14)
--- NOTE | 2016-09-03 13:19 | Fluoroscopy Report ---
[place] ERCP w sphincterotomy Indication: Abdominal pain. Comparison: None. Technique: Multiple fluoroscopic images were obtained using the C-arm in the anterior projection during ERCP. The procedure is performed by Dr. Bernal. Findings: Too numerous to count gallstones are demonstrated within the extrahepatic bile duct. Ductal enlargement secondary to stones is present. Total fluoroscopy time is 16 minutes. Impression: 1. Choledocholithiasis. 09/03/2016 1:15 PM PROCEDURE INTERPRETED AT [facility] DEPARTMENT OF RADIOLOGY Final Report Signed by: Dr. Steve Cadet
[2016-09-03] MEDS: ONDANSETRON 4 MG/2 ML VIAL IV PRN ×2 (13:25→14:42)
[2016-09-03] MEDS: POLYETHYLENE GLYCOL POWDER 17 GM PACK PO PRN (14:42)
[2016-09-03] MEDS: DOCUSATE SODIUM 100 MG CAPSULE PO SCH ×2 (14:42→20:50)
[2016-09-03] MEDS ORDERED: ONDANSETRON 4 MG/2 ML VIAL IV PRN (17:05)
--- NOTE | 2016-09-03 17:09 | Hospitalist Progress Note ---
Assessment and Plan (1) Choledocholithiasis with obstruction Status: Acute Assessment and plan: Status post ERCP with sphincterotomy and passage of stones. Patient followed by general surgery for evaluation for possible cholecystectomy. Current Visit: Yes Qualifiers: Cholecystitis presence: without cholecystitis Qualified Code(s): K80.51 - Calculus of bile duct without cholangitis or cholecystitis with obstruction (2) Elevated liver enzymes Status: Acute Current Visit: Yes (3) Total bilirubin, elevated Status: Acute Current Visit: Yes (4) UTI (urinary tract infection) Status: Acute Assessment and plan: Klebsiella UTI. Sensitive to Rocephin. Current Visit: Yes Qualifiers: Urinary tract infection type: acute cystitis (5) Obesity (BMI 35.0-39.9 without comorbidity) Status: Chronic Current Visit: Yes Hospitalist: Subjective Interval history: Patient seen and examined. No acute events overnight. Case discussed with nursing staff. Labs reviewed. Patient for ERCP today. Complains of nausea without vomiting. Exam - Constitutional Vitals: Period Temp Pulse Resp BP Sys/Silvestre Pulse Ox Last 24 Hr 97.5 F-98.5 F 52-86 12-20 112-131/61-83 95-100 Exam: Constitutional System: Mild distress. No tremulousness. Head: Normocephalic, atraumatic. Ears, Nose and Throat System: No pain or tenderness. No epistaxis or discharge Eyes System: Pupils equal, round, and reactive. Extraocular muscles intact. Neck: Supple, without adenopathy, No jugular venous distention. Respiratory System: Chest clear to auscultation. Cardiovascular System: Heart with regular rate and rhythm. No murmur. GI System: Abdomen soft, tenderness on palpation in the right upper quadrant. Normo active bowel sounds present. Musculoskeletal System: limbs with no pedal edema. Full distal pulses. Neurological System: No discernable sensory deficit. No aphasia Psychiatric System: Conversation is rational Results - Labs CBC & BMP: 09/03/16 05:56 09/02/16 06:27 Lab Results: I have reviewed the past 24 hour labs
[2016-09-03] MEDS: cefTRIAXone 1,000 MG in SODIUM CHLORIDE 0.9% 100 ML IV SCH (21:31)
[2016-09-04 05:23] LABS: Basophils % 0.3 % (0.0-0.8); Eosinophils # 0.1 10*3/uL (0.0-0.87); Eosinophils % 1.7 % (0.00-10.9); Hematocrit 32.5 VOL% (35.7-47.0); Hemoglobin 10.6 GM/DL (12.0-16.0); Immature Granulocytes % 1.1 %; Immature Granulocytes Absolute 0.07 #; Lymphocytes # 1.3 10*3/uL (1.4-4.0); Lymphocytes % 20.8 % (21.3-54.2); Mean Corpuscular HGB Conc 32.6 GM/DL (32-36); Mean Corpuscular Hemoglobin 28 PG (27-34); Mean Corpuscular Volume 85.3 FL (87-102); Mean Platelet Volume 11.9 FL (9.6-12.0); Monocytes # 0.4 10*3/uL (0.11-0.8); Monocytes % 6.6 % (1.7-12.7); Neutrophils # 4.4 10*3/uL (1.4-7.4); Neutrophils % 69.5 % (38.7-73.9); Platelet Count 215 T/CUMM (130-400); Red Blood Count 3.81 MC/CUMM (3.8-5.5); White Blood Count 6.4 T/CUMM (4-12)
[2016-09-04 05:59] LABS: Bilirubin,Total 2.8 MG/DL (0.2-1.0); Calcium 9.1 MG/DL (8.5-10.1); Osmolality,Calculated 273.5 MOS/KG (273-304); Potassium 3.7 MMOL/L (3.5-5.1); Total Protein 6.7 G/DL (6.4-8.3)
[2016-09-04] MEDS: SODIUM CHLORIDE 0.45% 1,000 ML IV SCH ×3 (06:31→16:01)
--- NOTE | 2016-09-04 08:50 | Gastrointestinal Progress Note ---
<Adela Ratliff - Last Filed: 09/04/16 08:48> Assessment and Plan (1) Choledocholithiasis with obstruction Status: Acute Assessment and plan: 09/04-ERCP findings noted. Bilirubin down today at 2.8 with continued elevated transaminases. Lipase 570. No reports of abdominal pain, nausea or vomiting. Surgery following at present peer. Plan an addendum to follow by Dr. Bernal. Current Visit: Yes Qualifiers: Cholecystitis presence: without cholecystitis Qualified Code(s): K80.51 - Calculus of bile duct without cholangitis or cholecystitis with obstruction Gastroenterology - PN: Subj Interval history: CC: Choledocholithiasis Patient is seen awake and alert lying in bed. States she had an uneventful night. Complained of just some mild soreness in her upper abdomen. Patient is being followed by surgery and she states that she is to have a cholecystectomy this morning. No documentation noted at this point to support this. Abdomen is soft, nontender. Bilirubin is trended down to 2.8 however transaminases remain elevated. Lipase is at 570. ROS: Denies shortness of breath or chest pain Exam (Progress Note) - Constitutional Vitals: Period Temp Pulse Resp BP Sys/Silvestre Pulse Ox Last 24 Hr 97.6 F-98.9 F 55-98 12-19 97-129/46-81 96-100 General appearance: normal weight, no acute distress - Head Head exam: Present: normal inspection, normocephalic - Eye Eye exam: Present: other (Lids and conjunctive are unremarkable). Absent: scleral icterus - ENT ENT exam: Present: normal exam, normal oropharynx - Neck Neck exam: Present: normal inspection - Respiratory Respiratory exam: Present: clear to auscultation bilaterally. Absent: rales, rhonchi, wheezes - Cardiovascular Cardiovascular exam: Present: regular rate and rhythm. Absent: diastolic murmur , JVD, systolic murmur - GI/Abdominal GI/Abdominal exam: Present: normal bowel sounds, soft. Absent: ascites, distended, mass, organomegaly, tenderness - Extremities Exam Extremities exam: Present: normal inspection, full ROM - Back Exam Back exam: Present: normal inspection - Neurological Exam Neurological exam: Present: alert, oriented X3 - Psychiatric Psychiatric exam: Present: normal affect, normal mood - Skin Skin exam: Present: normal color, warm, dry Results - Labs CBC & BMP: 09/04/16 05:10 09/04/16 05:10 Lab Results: I have reviewed the past 24 hour labs <Alek Bernal - Last Filed: 09/04/16 22:33> Exam (Progress Note) - Constitutional Vitals: Period Temp Pulse Resp BP Sys/Silvestre Pulse Ox Last 24 Hr 97.1 F-98.4 F 55-83 16-22 104-129/55-76 95-100 Results - Labs CBC & BMP: 09/04/16 05:10 09/04/16 05:10
--- NOTE | 2016-09-04 08:55 | General Surgery Progress Note ---
Assessment and Plan (1) Choledocholithiasis with obstruction Status: Acute Assessment and plan: She appears to have biliary obstruction causing her jaundice. She is largely asymptomatic other than the jaundice. There does not appear to be associated cholangitis. I discussed the role of cholecystectomy which would be done to prevent recurrences after her ERCP. I do not see a role for cholecystectomy prior to ERCP in this case. 09/01: She feels better but is itching from her jaundice. She will need an ERCP. Following this we can look at laparoscopic cholecystectomy to prevent recurrences. I do not see evidence of cholangitis at this time. 09/02: She feels better and has no abdominal pain this morning. She is for ERCP tomorrow. We can discuss laparoscopic cholecystectomy after this. I did discuss the role of laparoscopic cholecystectomy and preventing recurrences of this problem. 09/04: I did see the patient yesterday but did not get a note in the computer apparently. I discussed her case with Dr. Bernal. She has multiple stones in her common bile duct but he feels that he can get these out on follow-up ERCP. Her gallbladder does need to be removed. Laparoscopic cholecystectomy was discussed in detail with the patient along with the risks including infection, bleeding, conversion to open, common bile duct injury, bile leaks, etc. She understands these risks and wishes to proceed Current Visit: Yes Qualifiers: Cholecystitis presence: without cholecystitis Qualified Code(s): K80.51 - Calculus of bile duct without cholangitis or cholecystitis with obstruction Subjective Patient reports: Present: feels better, pain is less. Absent: nausea, vomiting Exam - Constitutional Vitals: Period Temp Pulse Resp BP Sys/Silvestre Pulse Ox Last 24 Hr 97.6 F-98.9 F 55-98 12-19 97-129/46-81 96-100 General appearance: no acute distress - Eye Eye exam: Absent: scleral icterus - Respiratory Respiratory exam: Absent: accessory muscle use - GI/Abdominal GI/Abdominal exam: Present: soft. Absent: distended, tenderness Results - Labs CBC & BMP: 09/04/16 05:10 09/04/16 05:10 Lab Results: I have reviewed the past 24 hour labs
[2016-09-04] MEDS: CHOLESTYRAMINE 4 GM PACK PO SCH (09:03)
[2016-09-04] MEDS: DOCUSATE SODIUM 100 MG CAPSULE PO SCH ×2 (09:03→21:02)
--- NOTE | 2016-09-04 15:24 | Operative Note ---
Date of procedure: 09/04/16 Pre-op diagnosis: Cholelithiasis with choledocholithiasis Post-op diagnosis: same Procedure: Laparoscopic converted open cholecystectomy with intraoperative cholangiogram Findings and technique: After informed consent was obtained patient was brought the operating room and placed in supine position. After successful induction of general anesthesia the patient's abdomen was prepped and draped in usual sterile fashion. Local anesthesia was infiltrated at the umbilicus were small transverse incision was made through her old scar at the base of the umbilicus and an open technique used in the peritoneal cavity without difficulty. Stewart cannula was inserted and pneumoperitoneum was established. The right upper quadrant was visualized and the patient was noted to have a very thickened gallbladder. Ports were placed in the upper abdomen under camera vision in the fundus the gallbladder was grasped and retracted upwards of the liver. This was actually difficult to grasp because of the severely thickened essentially solid gallbladder as it was completely packed with stones. The neck of the gallbladder was very difficult to visualize because of inflammation of the gallbladder neck. I started dissection high on the gallbladder neck and dissected down stripping peritoneum off of the neck. This was very thickened and dense. It was very difficult to delineate between the gallbladder neck cystic duct and the structures in the hepatoduodenal ligament. I kept my dissection lateral and did not want to dissect in the fibrotic. Hepatoduodenal ligament. I made an incision at the gallbladder neck after I dissected the medial neck free and achieved what I felt was a critical view of safety. The cholangiogram really showed nothing but stones and I thought it showed stones going down a long large cystic duct to stones that I could visualize in what I felt like was the common bile duct adjacent to the stent. This was very difficult to interpret. I did not feel comfortable doing any more dissection laparoscopically and felt that there was risk of injury with further laparoscopic dissection. For this reason I made a right upper quadrant incision small in size but large enough to place my hand in so I could palpate structures at the gallbladder neck and hepatoduodenal ligament. I started taking the gallbladder from a top down approach where the dissection was easier. I opened up the gallbladder neck further and fish stones out distally both with a biliary Kunal and with a Crile hemostat. I was able to get what I thought was a catheter down into common bile duct and shot another cholangiogram. This appeared to be completely packed with stones in the duct itself was actually very small. I certainly did not feel comfortable trying to do a common bile duct exploration in this fibrotic appearing hepatoduodenal ligament. With and this also had a very small duct which I felt was going to put her high risk for stricture. Since she had a stent in place to drain her biliary tree I elected to ligate the cystic duct right at the gallbladder neck and this was done with 2 large hemoclips and a silk tie. The gallbladder was then removed. The right upper quadrant was liberally irrigated and suctioned dry and no bleeding or bile leakage noted minimal blood loss occurred during the case. The sponge and instrument counts were correct at the time of closure and closed the fascia with a running #1 PDS suture. The skin was closed with skin clips. She appeared to tolerate the procedure well. Anesthesia: OMIA, local Surgeon / Physician: Bjorn Cherry III. Estimated blood loss: minimal Specimens: other (Gallbladder) Condition: stable Disposition: PACU Results - Labs CBC & BMP: 09/04/16 05:10 09/04/16 05:10 Discharge Plan - Discharge Medications No Action No Known Home Medications [No Known Home Medications] - Follow Up or Referral - Forms/Instructions
--- NOTE | 2016-09-04 15:37 | Anesthesia Post-Op ---
Anesthesia Post OP - Post Ansesthetic Evaluation Patient seen in post op: Yes Resp: within normal limits CV: within normal limits Mental: within normal limits Temp: within normal limits [id number]: within normal limits Nausea and Vomiting: within normal limits Pain: within normal limits
[2016-09-04] MEDS ORDERED: MIDAZOLAM 2 MG/2 ML VIAL ONE (15:41)
[2016-09-04] MEDS ORDERED: fentaNYL 100 MCG/2 ML VIAL ONE (15:41)
[2016-09-04] MEDS ORDERED: LACTATED RINGERS 2,000 ML IV ONE (15:41)
[2016-09-04] MEDS ORDERED: HYDROmorphone 2 MG/1 ML VIAL ONE (15:41)
[2016-09-04] MEDS ORDERED: SEVOFLURANE 1 UNIT/15 MINUTE INH ONE (15:41)
--- NOTE | 2016-09-04 16:52 | Hospitalist Progress Note ---
Assessment and Plan (1) Choledocholithiasis with obstruction Status: Acute Assessment and plan: Status post ERCP with sphincterotomy and passage of stones. Patient followed by general surgery for evaluation for cholecystectomy. Current Visit: Yes Qualifiers: Cholecystitis presence: without cholecystitis Qualified Code(s): K80.51 - Calculus of bile duct without cholangitis or cholecystitis with obstruction (2) Elevated liver enzymes Status: Acute Current Visit: Yes (3) Total bilirubin, elevated Status: Acute Current Visit: Yes (4) UTI (urinary tract infection) Status: Acute Assessment and plan: Klebsiella UTI. Sensitive to Rocephin. Current Visit: Yes Qualifiers: Urinary tract infection type: acute cystitis (5) Obesity (BMI 35.0-39.9 without comorbidity) Status: Chronic Current Visit: Yes Hospitalist: Subjective Interval history: Patient seen and examined. No acute events overnight. Case discussed with nursing staff. Labs reviewed. Plan for laparoscopic cholecystectomy. Case discussed with GI. Exam - Constitutional Vitals: Period Temp Pulse Resp BP Sys/Silvestre Pulse Ox Last 24 Hr 97.1 F-98.9 F 55-98 16-22 104-129/55-72 97-100 Exam: Constitutional System: Mild distress. No tremulousness. Head: Normocephalic, atraumatic. Ears, Nose and Throat System: No pain or tenderness. No epistaxis or discharge Eyes System: Pupils equal, round, and reactive. Extraocular muscles intact. Neck: Supple, without adenopathy, No jugular venous distention. Respiratory System: Chest clear to auscultation. Cardiovascular System: Heart with regular rate and rhythm. No murmur. GI System: Abdomen soft, tenderness on palpation in the right upper quadrant. Normo active bowel sounds present. Musculoskeletal System: limbs with no pedal edema. Full distal pulses. Neurological System: No discernable sensory deficit. No aphasia Psychiatric System: Conversation is rational Results - Labs CBC & BMP: 09/04/16 05:10 09/04/16 05:10 Lab Results: I have reviewed the past 24 hour labs Quality Measures - VTE Contraindication to Pharmacological VTE Prophylaxis: High Risk of Bleeding
[2016-09-04] MEDS: MORPHINE 2 MG/1 ML SYRINGE IV PRN ×2 (17:06→21:10)
--- NOTE | 2016-09-04 18:16 | Fluoroscopy Report ---
[place] cholangiogram in surgery Indication: Pain Comparison: No relevant comparison Technique: 267 intraoperative fluoroscopic views of the biliary tree were obtained. Fluoroscopy time 57 seconds. Findings: Images submitted during operative cholangiogram. Multiple oval filling defects demonstrated within the distal cystic duct and common hepatic duct suspicious for calculi. There appears to be free flow of contrast through the common duct into the duodenum. Please see operative report for details. IMPRESSION: As above. PROCEDURE INTERPRETED AT [facility] DEPARTMENT OF RADIOLOGY Final Report Signed by: Dr Bubba Garnett
[2016-09-04] MEDS: cefTRIAXone 1,000 MG in SODIUM CHLORIDE 0.9% 100 ML IV SCH (21:02)
[2016-09-05] MEDS: SODIUM CHLORIDE 0.45% 1,000 ML IV SCH ×3 (00:30→14:29)
[2016-09-05] MEDS: MORPHINE 2 MG/1 ML SYRINGE IV PRN ×3 (01:05→12:52)
[2016-09-05] MEDS: diphenhydrAMINE CAP 25 MG CAPSULE PO PRN (08:13)
[2016-09-05] MEDS: DOCUSATE SODIUM 100 MG CAPSULE PO SCH ×2 (08:13→21:25)
[2016-09-05] MEDS: CHOLESTYRAMINE 4 GM PACK PO SCH (08:16)
--- NOTE | 2016-09-05 08:48 | Gastrointestinal Progress Note ---
<Adela Ratliff - Last Filed: 09/05/16 08:45> Assessment and Plan (1) Choledocholithiasis with obstruction Status: Acute Assessment and plan: 09/05-Day 2 post open cholecystectomy. Expected post op pain. Repeat LFT pending. Plan and addendum to follow by Dr Bernal. 09/04-ERCP findings noted. Bilirubin down today at 2.8 with continued elevated transaminases. Lipase 570. No reports of abdominal pain, nausea or vomiting. Surgery following at present peer. Plan an addendum to follow by Dr. Bernal. Current Visit: Yes Qualifiers: Cholecystitis presence: without cholecystitis Qualified Code(s): K80.51 - Calculus of bile duct without cholangitis or cholecystitis with obstruction Gastroenterology - PN: Subj Interval history: CC: Cholelithiasis, choledocholithiasis Pt is awake and alert, lying in bed. States she had a difficult night with pain per patient. Denies any nausea or vomiting. Abdomen is soft, tender to palpation. Repeat LFTs are pending today. Pt noted to have intraoperative cholangiogram with multiple oval filling defects within distal cystic duct, common hepatic duct suspicious for calculi, free flow of contrast into duodenum. ROS: Denies SOB or chest pain Exam (Progress Note) - Constitutional Vitals: Period Temp Pulse Resp BP Sys/Silvestre Pulse Ox Last 24 Hr 97.1 F-98.6 F 62-83 16-22 101-129/54-76 93-100 General appearance: normal weight, no acute distress - Head Head exam: Present: normal inspection, normocephalic - Eye Eye exam: Present: other (lids and conjunctiva unremarkable). Absent: scleral icterus - ENT ENT exam: Present: normal exam, normal oropharynx - Neck Neck exam: Present: normal inspection - Respiratory Respiratory exam: Present: clear to auscultation bilaterally. Absent: rales, rhonchi, wheezes - Cardiovascular Cardiovascular exam: Present: regular rate and rhythm. Absent: diastolic murmur , JVD, systolic murmur - GI/Abdominal GI/Abdominal exam: Present: hypoactive bowel sounds, tenderness, soft. Absent: ascites, distended, mass, organomegaly - Extremities Exam Extremities exam: Present: normal inspection, full ROM - Back Exam Back exam: Present: normal inspection - Neurological Exam Neurological exam: Present: alert, oriented X3 - Psychiatric Psychiatric exam: Present: normal affect, normal mood - Skin Skin exam: Present: normal color, warm, dry Results - Labs CBC & BMP: 09/04/16 05:10 09/04/16 05:10 Lab Results: I have reviewed the past 24 hour labs <Alek Bernal - Last Filed: 09/05/16 19:13> Exam (Progress Note) - Constitutional Vitals: Period Temp Pulse Resp BP Sys/Silvestre Pulse Ox Last 24 Hr 98.1 F-98.7 F 63-99 17-20 101-118/54-76 93-96 Results - Labs CBC & BMP: 09/04/16 05:10 09/04/16 05:10
[2016-09-05 10:39] LABS: Albumin 2.9 G/DL (3.4-5.0); Bilirubin,Direct 1.6 MG/DL (0.0-0.20); Bilirubin,Indirect 0.5 MG/DL (0.0-1.0); Bilirubin,Total 2.1 MG/DL (0.2-1.0); Total Protein 6.6 G/DL (6.4-8.3)
--- NOTE | 2016-09-05 12:07 | Hospitalist Progress Note ---
Assessment and Plan (1) Elevated liver enzymes Status: Acute Current Visit: Yes (2) Total bilirubin, elevated Status: Acute Current Visit: Yes (3) UTI (urinary tract infection) Status: Acute Current Visit: Yes Qualifiers: Urinary tract infection type: acute cystitis (4) Choledocholithiasis with obstruction Status: Acute Current Visit: Yes Qualifiers: Cholecystitis presence: without cholecystitis Qualified Code(s): K80.51 - Calculus of bile duct without cholangitis or cholecystitis with obstruction (5) Obesity (BMI 35.0-39.9 without comorbidity) Status: Chronic Assessment and plan: Our plan for this patient will be continued hospitalization through the weekend per Dr. Jo Ann JAIN. We will repeat her labs in the morning. She is having the routine postop pain. Continue with IV antibiotics. Current Visit: Yes Hospitalist: Subjective Interval history: Patient complaining of lower abdominal pain otherwise no other complaints. Exam - Constitutional Vitals: Period Temp Pulse Resp BP Sys/Silvestre Pulse Ox Last 24 Hr 97.1 F-98.7 F 62-99 16-22 101-129/54-76 93-100 General appearance: normal weight - Head Head exam: Present: normal inspection - Eye Eye exam: Present: EOMI Pupils: Present: HANNAH - ENT ENT exam: Present: normal exam - Neck Neck exam: Present: normal inspection - Respiratory Respiratory exam: Present: clear to auscultation bilaterally - Cardiovascular Cardiovascular exam: Present: regular rate and rhythm - GI/Abdominal GI/Abdominal exam: Present: hypoactive bowel sounds, tenderness (Diffusely) - Extremities Exam Extremities exam: Present: normal inspection - Back Exam Back exam: Present: normal inspection Results - Labs CBC & BMP: 09/04/16 05:10 09/04/16 05:10 Quality Measures - VTE Contraindication to Pharmacological VTE Prophylaxis: High Risk of Bleeding
[2016-09-05] MEDS: cefTRIAXone 1,000 MG in SODIUM CHLORIDE 0.9% 100 ML IV SCH (21:24)
[2016-09-06] MEDS: MORPHINE 2 MG/1 ML SYRINGE IV PRN (00:57)
[2016-09-06] MEDS: SODIUM CHLORIDE 0.45% 1,000 ML IV SCH ×3 (02:50→17:29)
--- NOTE | 2016-09-06 08:44 | Event Note ---
She feels well. I did see the patient yesterday but somehow my note did not get in the computer. I may have forgotten to enter the note in but she was doing well yesterday. Last night she got up and had some bleeding from her umbilical incision. I have cleaned this up and did not see any ongoing bleeding or hematoma. Her right upper quadrant incision looks good. Overall she feels better. She still has stones in her common bile duct but we are going to manage this with Actigall and then repeat her ERCP in the next 4-[address] Bernal. I do not see evidence of a complication or problem at this point and I think that she will be ready for discharge in the next day or 2.
[2016-09-06 09:20] LABS: Albumin 3.1 G/DL (3.4-5.0); Bilirubin,Total 1.8 MG/DL (0.2-1.0); Osmolality,Calculated 276.3 MOS/KG (273-304); Potassium 3.7 MMOL/L (3.5-5.1); Total Protein 6.7 G/DL (6.4-8.3)
[2016-09-06] MEDS: DOCUSATE SODIUM 100 MG CAPSULE PO SCH ×2 (09:54→21:22)
[2016-09-06] MEDS: POLYETHYLENE GLYCOL POWDER 17 GM PACK PO PRN (09:55)
[2016-09-06] MEDS: CHOLESTYRAMINE 4 GM PACK PO SCH (09:56)
--- NOTE | 2016-09-06 10:06 | Gastrointestinal Progress Note ---
<Adela Ratliff - Last Filed: 09/06/16 10:03> Assessment and Plan (1) Choledocholithiasis with obstruction Status: Acute Assessment and plan: 09/06-postop day 3 open cholecystectomy. LFTs trending down at this time. Afebrile. Tolerating small amounts of diet. To be discharged home on Actigall and return in 6 weeks for repeat ERCP. To be scheduled prior to discharge. Plan an addendum to follow by Dr. Bernal. 09/05-Day 2 post open cholecystectomy. Expected post op pain. Repeat LFT pending. Plan and addendum to follow by Dr Bernal. 09/04-ERCP findings noted. Bilirubin down today at 2.8 with continued elevated transaminases. Lipase 570. No reports of abdominal pain, nausea or vomiting. Surgery following at present peer. Plan an addendum to follow by Dr. Bernal. Current Visit: Yes Qualifiers: Cholecystitis presence: without cholecystitis Qualified Code(s): K80.51 - Calculus of bile duct without cholangitis or cholecystitis with obstruction Gastroenterology - PN: Subj Interval history: CC: Choledocholithiasis Patient is seen awake and alert sitting up on edge of bed. States she had an uneventful night. Patient states that her abdominal pain is slightly better at this time today. Denies nausea or vomiting. She is tolerating small amounts of her diet as well. She is afebrile. LFTs continue to trend down at this time with bilirubin 1.8, AST 274, ALT 663. She is for possible discharge home tomorrow. Patient will be discharged home on Actigall however we are sensitive to the fact the patient does not have any insurance coverage and may not be able to financially afford this medication. She has an appointment to return in 6 weeks for repeat ERCP with Dr. Bernal as well. Abdomen is soft, tender to palpation. ROS: Denies shortness of breath or chest pain Exam (Progress Note) - Constitutional Vitals: Period Temp Pulse Resp BP Sys/Silvestre Pulse Ox Last 24 Hr 97.6 F-98.7 F 75-100 18-20 100-119/44-67 93-100 General appearance: normal weight, no acute distress - Head Head exam: Present: normal inspection, normocephalic - Eye Eye exam: Present: other (Lids and conjunctive are unremarkable). Absent: scleral icterus - ENT ENT exam: Present: normal exam, normal oropharynx - Neck Neck exam: Present: normal inspection - Respiratory Respiratory exam: Present: clear to auscultation bilaterally. Absent: rales, rhonchi, wheezes - Cardiovascular Cardiovascular exam: Present: regular rate and rhythm. Absent: diastolic murmur , JVD, systolic murmur - GI/Abdominal GI/Abdominal exam: Present: normal bowel sounds, soft. Absent: ascites, distended, mass, organomegaly, tenderness - Extremities Exam Extremities exam: Present: normal inspection, full ROM - Back Exam Back exam: Present: normal inspection - Neurological Exam Neurological exam: Present: alert, oriented X3 - Psychiatric Psychiatric exam: Present: normal affect, normal mood - Skin Skin exam: Present: normal color, warm, dry Results - Labs CBC & BMP: 09/04/16 05:10 09/06/16 08:34 Lab Results: I have reviewed the past 24 hour labs <Alek Bernal - Last Filed: 09/06/16 12:59> Exam (Progress Note) - Constitutional Vitals: Period Temp Pulse Resp BP Sys/Silvestre Pulse Ox Last 24 Hr 97.6 F-98.6 F 75-100 18-20 100-139/44-77 94-100 Results - Labs CBC & BMP: 09/06/16 12:11 09/06/16 08:34
[2016-09-06 12:21] LABS: Hematocrit 28.3 VOL% (35.7-47.0); Hemoglobin 9.1 GM/DL (12.0-16.0)
--- NOTE | 2016-09-06 14:34 | XRay Report ---
XR chest 2V Date: 09/06/2016 12:37 PM History: Shortness of breath, postop open gallbladder surgery Comparison: 08/30/2016 Technique: PA and lateral chest Findings: The heart is normal in size. Subsegmental atelectasis/infiltration at the lung bases. Recent cholecystectomy with apparent biliary stent. Impression: Subsegmental atelectasis/infiltration at the lung bases. Prior cholecystectomy with apparent biliary stent. Limited evaluation of this finding. PROCEDURE INTERPRETED AT [facility] DEPARTMENT OF RADIOLOGY Final Report Signed by: Dr. Gwendolyn Moreira
[2016-09-06] MEDS: ALBUTEROL/IPRATROPIUM 3 ML NEB RESP TX SCH ×2 (16:29→20:05)
--- NOTE | 2016-09-06 16:45 | Hospitalist Progress Note ---
Assessment and Plan (1) Status post cholecystectomy Status: Acute Assessment and plan: Patient is recovering from surgery. Current Visit: Yes (2) Anemia Status: Chronic Current Visit: Yes (3) Choledocholithiasis with obstruction Status: Acute Assessment and plan: Status post cholecystectomy. Current Visit: Yes Qualifiers: Cholecystitis presence: without cholecystitis Qualified Code(s): K80.51 - Calculus of bile duct without cholangitis or cholecystitis with obstruction (4) Obesity (BMI 35.0-39.9 without comorbidity) Status: Chronic Current Visit: Yes (5) Atelectasis Status: Acute Assessment and plan: Encourage incentive spirometry. DuoNeb's. Current Visit: Yes Hospitalist: Subjective Interval history: The patient is resting. Continue to encourage her with incentive spirometry. Follow-up chest x-ray shows some atelectatic changes. Albuterol nebs have been ordered. CBC BMP in a.m. Exam - Constitutional Vitals: Period Temp Pulse Resp BP Sys/Silvestre Pulse Ox Last 24 Hr 97.6 F-98.6 F 83-100 20-20 100-139/44-77 94-100 General appearance: over weight - Head Head exam: Present: normal inspection - Eye Eye exam: Present: EOMI - ENT ENT exam: Present: normal exam - Neck Neck exam: Present: normal inspection - Respiratory Respiratory exam: Present: clear to auscultation bilaterally, other (However patient needs to take deep breaths.) - Cardiovascular Cardiovascular exam: Present: regular rate and rhythm - GI/Abdominal GI/Abdominal exam: Present: normal bowel sounds - Extremities Exam Extremities exam: Present: normal inspection - Skin Skin exam: Present: normal color Results - Labs CBC & BMP: 09/06/16 12:11 09/06/16 08:34 Quality Measures - VTE Contraindication to Pharmacological VTE Prophylaxis: High Risk of Bleeding Specialty Discharge - Follow Up or Referrals Follow up with: Bjorn Cherry III., MD [Physician] - 1 Week
[2016-09-06] MEDS: cefTRIAXone 1,000 MG in SODIUM CHLORIDE 0.9% 100 ML IV SCH (21:22)
[2016-09-07] MEDS: ALBUTEROL/IPRATROPIUM 3 ML NEB RESP TX SCH ×6 (00:15→22:04)
[2016-09-07] MEDS: SODIUM CHLORIDE 0.45% 1,000 ML IV SCH ×2 (02:19→11:35)
[2016-09-07 06:44] LABS: Basophils % 0.5 % (0.0-0.8); Eosinophils # 0.1 10*3/uL (0.0-0.87); Eosinophils % 1.8 % (0.00-10.9); Hematocrit 25.4 VOL% (35.7-47.0); Immature Granulocytes Absolute 0.06 #; Lymphocytes # 1.6 10*3/uL (1.4-4.0); Mean Corpuscular HGB Conc 31.9 GM/DL (32-36); Mean Corpuscular Hemoglobin 29 PG (27-34); Mean Corpuscular Volume 90.7 FL (87-102); Mean Platelet Volume 12.2 FL (9.6-12.0); Monocytes # 0.4 10*3/uL (0.11-0.8); Neutrophils # 3.8 10*3/uL (1.4-7.4); Neutrophils % 62.7 % (38.7-73.9); Platelet Count 184 T/CUMM (130-400); Red Cell Distribution Width 17.7 % (9.3-17.3)
[2016-09-07 06:45] LABS: Hemoglobin 8.1 GM/DL (12.0-16.0)
[2016-09-07 07:07] LABS: Calcium 8.6 MG/DL (8.5-10.1); Osmolality,Calculated 282.4 MOS/KG (273-304); Potassium 3.5 MMOL/L (3.5-5.1)
--- NOTE | 2016-09-07 08:13 | Hospitalist Progress Note ---
Assessment and Plan - Time spent with patient Time spent with patient: Less than 30 minutes (1) Status post cholecystectomy Status: Acute Assessment and plan: Patient is status post cholecystectomy. Continue postop care. Been followed by general surgery. Current Visit: Yes (2) Choledocholithiasis with obstruction Status: Acute Assessment and plan: Appreciate input from gastroenterology. Will continue current therapy, general surgery has been consulted for possible cholecystectomy and Dr. Bernal for possible ERCP on Friday. 09/01/16: Continuing current therapy and awaiting ERCP on Friday. Appreciate input from gastroenterology and general surgery. 09/02/16: ERCP planned for Friday. Continue current care. 09/07/16: Patient continues to do well and is now status post cholecystectomy. She has been followed by general surgery. GI has now signed off however there are plans for return for repeat ERCP in 6 weeks. Current Visit: Yes Qualifiers: Cholecystitis presence: without cholecystitis Qualified Code(s): K80.51 - Calculus of bile duct without cholangitis or cholecystitis with obstruction (3) UTI (urinary tract infection) Status: Resolved Assessment and plan: Urine culture does reveal gram-negative rods. Continue IV antibiotics. Awaiting final ID and sensitivity. 09/02/16: Urine culture revealed Klebsiella oxytoca sensitive to current antibiotic regimen which we will continue. 10/04/16:. Patient received appropriate antibiotic coverage of her Klebsiella UTI. Current Visit: Yes Qualifiers: Urinary tract infection type: acute cystitis (4) Anemia Status: Acute Assessment and plan: Patient has had decrease in her hemoglobin and hematocrit. She is otherwise asymptomatic and hemodynamically stable. There is no evidence of bleeding at this time. We will continue to follow. Current Visit: Yes (5) Obesity (BMI 35.0-39.9 without comorbidity) Status: Chronic Current Visit: Yes Hospitalist: Subjective Interval history: Chart is been reviewed and patient examined. She has a poor appetite but denies any nausea or vomiting. She primarily complains of some abdominal pain at the incision. She is breathing deeper today and is currently receiving a nebulizer treatment. Exam - Constitutional Vitals: Period Temp Pulse Resp BP Sys/Silvestre Pulse Ox Last 24 Hr 97.8 F-98.6 F 81-97 18-20 113-139/50-77 94-100 General appearance: no acute distress - Head Head exam: Present: normocephalic, atraumatic - Eye Eye exam: Present: EOMI Pupils: Present: HANNAH - ENT ENT exam: Present: normal exam - Neck Neck exam: Present: normal inspection - Respiratory Respiratory exam: Present: clear to auscultation bilaterally. Absent: rales, rhonchi, wheezes - Cardiovascular Cardiovascular exam: Present: regular rate and rhythm. Absent: tachycardia - GI/Abdominal GI/Abdominal exam: Present: normal bowel sounds, tenderness (She has some incisional tenderness in the upper right quadrant), soft, other (Bruising just below the umbilicus). Absent: mass - Extremities Exam Extremities exam: Absent: calf tenderness, edema - Neurological Exam Neurological exam: Present: alert, oriented X3, CN II-XII intact. Absent: motor sensory deficit - Psychiatric Psychiatric exam: Present: normal affect, normal mood. Absent: agitated, anxious - Skin Skin exam: Present: warm, dry Results - Labs CBC & BMP: 09/07/16 05:59 09/07/16 05:59 Lab Results: I have reviewed the past 24 hour labs Quality Measures - VTE Contraindication to Pharmacological VTE Prophylaxis: High Risk of Bleeding Specialty Discharge - Follow Up or Referrals Follow up with: Bjorn Cherry III., MD [Physician] - 1 Week
[2016-09-07] MEDS ORDERED: BISACODYL 5 MG TABLET PO ONE (09:42)
--- NOTE | 2016-09-07 09:43 | Event Note ---
09/07/2016. Patient's afebrile eating fair but no bowel movement today. Abdomen is soft but her hematocrit is down to 25 today. There is bruising abdominal wall but it is soft and not indurated or thickened. This may be related to the umbilical trocar site at this time. Agree need to observe for now. She is sore and uncomfortable so we will get her abdominal binder to get her moving get her function.
[2016-09-07] MEDS: CHOLESTYRAMINE 4 GM PACK PO SCH (09:44)
[2016-09-07] MEDS: DOCUSATE SODIUM 100 MG CAPSULE PO SCH ×2 (09:52→21:22)
[2016-09-07 12:45] LABS: Hematocrit 26.9 VOL% (35.7-47.0); Hemoglobin 8.4 GM/DL (12.0-16.0)
[2016-09-07] MEDS: cefTRIAXone 1,000 MG in SODIUM CHLORIDE 0.9% 100 ML IV SCH (21:22)
[2016-09-08] MEDS: SODIUM CHLORIDE 0.45% 1,000 ML IV SCH ×2 (00:12→13:58)
[2016-09-08] MEDS: ALBUTEROL/IPRATROPIUM 3 ML NEB RESP TX SCH ×6 (02:03→20:30)
[2016-09-08 07:02] LABS: Basophils % 0.4 % (0.0-0.8); Eosinophils # 0.2 10*3/uL (0.0-0.87); Eosinophils % 3.2 % (0.00-10.9); Hematocrit 25.9 VOL% (35.7-47.0); Hemoglobin 8.1 GM/DL (12.0-16.0); Immature Granulocytes % 0.8 %; Immature Granulocytes Absolute 0.04 #; Lymphocytes # 1.8 10*3/uL (1.4-4.0); Mean Corpuscular HGB Conc 31.3 GM/DL (32-36); Mean Corpuscular Hemoglobin 28 PG (27-34); Mean Corpuscular Volume 90.6 FL (87-102); Monocytes # 0.3 10*3/uL (0.11-0.8); Monocytes % 5.8 % (1.7-12.7); Neutrophils % 56.8 % (38.7-73.9); Platelet Count 188 T/CUMM (130-400); Red Blood Count 2.86 MC/CUMM (3.8-5.5); Red Cell Distribution Width 17.6 % (9.3-17.3); White Blood Count 5.3 T/CUMM (4-12)
[2016-09-08 07:27] LABS: Calcium 8.8 MG/DL (8.5-10.1); Osmolality,Calculated 279.1 MOS/KG (273-304); Potassium 3.7 MMOL/L (3.5-5.1)
--- NOTE | 2016-09-08 07:56 | Hospitalist Progress Note ---
Assessment and Plan - Time spent with patient Time spent with patient: Less than 30 minutes (1) Status post cholecystectomy Status: Acute Assessment and plan: Patient is status post cholecystectomy. Continue postop care. Been followed by general surgery. 09/08/16: Patient is status post open cholecystectomy. She has been followed by general surgery. She appears to be improving and can be discharged when general surgery approves. Current Visit: Yes (2) Choledocholithiasis with obstruction Status: Acute Assessment and plan: Appreciate input from gastroenterology. Will continue current therapy, general surgery has been consulted for possible cholecystectomy and Dr. Bernal for possible ERCP on Friday. 09/01/16: Continuing current therapy and awaiting ERCP on Friday. Appreciate input from gastroenterology and general surgery. 09/02/16: ERCP planned for Friday. Continue current care. 09/07/16: Patient continues to do well and is now status post cholecystectomy. She has been followed by general surgery. GI has now signed off however there are plans for return for repeat ERCP in 6 weeks. Current Visit: Yes Qualifiers: Cholecystitis presence: without cholecystitis Qualified Code(s): K80.51 - Calculus of bile duct without cholangitis or cholecystitis with obstruction (3) UTI (urinary tract infection) Status: Resolved Assessment and plan: Urine culture does reveal gram-negative rods. Continue IV antibiotics. Awaiting final ID and sensitivity. 09/02/16: Urine culture revealed Klebsiella oxytoca sensitive to current antibiotic regimen which we will continue. 09/07/16:. Patient received appropriate antibiotic coverage of her Klebsiella UTI. Current Visit: Yes Qualifiers: Urinary tract infection type: acute cystitis (4) Anemia Status: Acute Assessment and plan: Patient has had decrease in her hemoglobin and hematocrit. She is otherwise asymptomatic and hemodynamically stable. There is no evidence of bleeding at this time. We will continue to follow. 09/08/16: Patient's H&H has remained relatively stable. She is otherwise asymptomatic. No evidence of bleeding. Current Visit: Yes (5) Obesity (BMI 35.0-39.9 without comorbidity) Status: Chronic Current Visit: Yes Hospitalist: Subjective Interval history: Patient sitting up on the side of the bed. She states that she is tolerating p.o. intake but it is still decreased. She denies any nausea, vomiting, diarrhea, constipation. She states that she has been up walking in the hallways. Exam - Constitutional Vitals: Period Temp Pulse Resp BP Sys/Silvestre Pulse Ox Last 24 Hr 97.6 F-98.1 F 81-102 16-20 100-156/57-81 96-100 General appearance: no acute distress - Head Head exam: Present: normocephalic, atraumatic - Eye Eye exam: Present: EOMI Pupils: Present: HANNAH - ENT ENT exam: Present: normal exam - Neck Neck exam: Present: normal inspection - Respiratory Respiratory exam: Present: clear to auscultation bilaterally - Cardiovascular Cardiovascular exam: Present: regular rate and rhythm. Absent: systolic murmur , tachycardia - GI/Abdominal GI/Abdominal exam: Present: normal bowel sounds, tenderness (Incisional), soft. Absent: rebound - Back Exam Back exam: Present: normal inspection - Neurological Exam Neurological exam: Present: alert, oriented X3, CN II-XII intact. Absent: motor sensory deficit - Psychiatric Psychiatric exam: Present: normal affect, normal mood. Absent: agitated, anxious - Skin Skin exam: Present: warm, dry. Absent: rash Results - Labs CBC & BMP: 09/08/16 06:37 09/08/16 06:37 Lab Results: I have reviewed the past 24 hour labs Quality Measures - VTE Contraindication to Pharmacological VTE Prophylaxis: High Risk of Bleeding Specialty Discharge - Follow Up or Referrals Follow up with: Bjorn Cheryr III., MD [Physician] - 1 Week
[2016-09-08] MEDS: POLYETHYLENE GLYCOL POWDER 17 GM PACK PO PRN (08:33)
[2016-09-08] MEDS: DOCUSATE SODIUM 100 MG CAPSULE PO SCH ×2 (08:33→20:17)
[2016-09-08] MEDS: CHOLESTYRAMINE 4 GM PACK PO SCH (09:06)
[2016-09-08] MEDS ORDERED: BISACODYL 5 MG TABLET PO ONE (15:39)
[2016-09-08] MEDS ORDERED: MINERAL OIL ENEMA 133 ML BOTTLE RECTAL ONE (15:40)
[2016-09-08] MEDS: cefTRIAXone 1,000 MG in SODIUM CHLORIDE 0.9% 100 ML IV SCH (20:18)
[2016-09-09] MEDS: cefTRIAXone 1,000 MG in SODIUM CHLORIDE 0.9% 100 ML IV SCH (00:10)
[2016-09-09] MEDS: ALBUTEROL/IPRATROPIUM 3 ML NEB RESP TX SCH ×4 (00:28→11:20)
[2016-09-09] MEDS: SODIUM CHLORIDE 0.45% 1,000 ML IV SCH ×3 (01:28→11:04)
--- NOTE | 2016-09-09 07:34 | Event Note ---
She feels well. She has no abdominal complaints. Her incision has had no further wheezing since Friday. She is anemic but this is stable. Her hematocrit has not dropped over the weekend. She should be fine for discharge from a surgical standpoint. I will leave discharge planning up to you.
[2016-09-09] MEDS: DOCUSATE SODIUM 100 MG CAPSULE PO SCH (08:46)
[2016-09-09] MEDS: CHOLESTYRAMINE 4 GM PACK PO SCH (08:47)
--- NOTE | 2016-09-09 10:14 | Discharge Summary ---
Hospital Course - Hospital Course Hospital Course: 25-year-old -H[place] female is morbidly obese presents with painless jaundice over the past 5 days. Patient had an elevated total bilirubin of 6.6 on admission with an AST of 533 and an ALT of 731. Abdominal ultrasound shows cholelithiasis choledocho lithiasis with an enlarged spleen. Common bile duct was 6 mm and the gallbladder was full of stones. The ERCP sphincterotomy was performed by Dr. Bernal on September 03, 2016 and an open cholecystectomy was performed on September 04, 2016. Patient still has retained stones and will need another ERCP in [address] Bernal. She was put on Cholestyramine but do to no insurance she cannot afford the actigall. Patient has a UTI growing Klebsiella oxytoca sensitive to Rocephin. She is already had adequate treatment and the Rocephin is now discontinued. Patient was anemic on admission and remains anemic but never had to have a blood transfusion. Her counts should slowly build back. She is doing well today and will be discharged home follow-up in [address] Jo Ann JAIN to have her diogo removed. - Time spent with patient Time with patient DS: Greater than 30 minutes (50 min) Diagnosis - Discharge Diagnosis (1) Elevated liver enzymes Status: Acute (2) Total bilirubin, elevated Status: Acute (3) Anemia Status: Acute (4) Snoring Status: Acute (5) Migraine Status: Acute (6) UTI (urinary tract infection) Status: Resolved Specialty Discharge - Follow Up or Referrals Follow up with: Bjorn Cherry III., MD [Physician] - 1 Week Discharge Plan - Discharge Data Disposition: Disch To Home/Self Care Condition at Discharge: Stable Discharge Diet: low fat, low cholesterol Activity: resume usual activities as tolerated Hygiene: no restrictions Weight Bearing at Discharge: full weight bearing - Discharge Medications New HYDROcodone/ACETAMIN 7.5-325 [[place] 7.5-325] 1 - 2 tablet PO Q4-6H PRN #40 tablet PRN Reason: Pain Moderate To Severe (4-10) Cholestyramine [Questran] 4 gm PO DAILY #30 tablet Polyethylene Glycol Powder [Miralax] 17 gm PO DAILY PRN PRN Reason: Constipation - Follow Up or Referral Follow Up: Bjorn Cherry III., MD [Physician] - 1 Week Alek Bernal MD [Physician] - 1 Month (6 weeks to be exact ) dr nabil [Other] - 2 Weeks - Forms/Instructions Instructions: Hydrocodone/Acetaminophen (By mouth), Ursodiol (By mouth) Exam - Constitutional Vitals: Period Temp Pulse Resp BP Sys/Silvestre Pulse Ox Last 24 Hr 97.8 F-98.7 F 73-96 16-20 112-133/64-86 96-100 General appearance: normal weight, no acute distress - Respiratory Respiratory exam: Present: clear to auscultation bilaterally. Absent: rhonchi, wheezes - Cardiovascular Cardiovascular exam: Present: regular rate and rhythm. Absent: systolic murmur - GI/Abdominal GI/Abdominal exam: Present: normal bowel sounds, soft. Absent: tenderness - Neurological Exam Neurological exam: Present: alert, oriented X3 DS: Provider Date of admission: 08/30/16 19:56 Primary care physician: Sandip oCoper MD Attending physician on admission: Chepe Hill MD Consults: 08/30/16 21:52 Consult to Physician [CONS] Routine Comment: painless jaundice Consulting Provider: Gabe Sinclair Person Notified: md diana Date Notified: 08/31/16 Time Notified: 08:00 08/31/16 08:20 Consult to Physician [CONS] Routine Comment: ERCP needed 09/03/16 Consulting Provider: Alek Bernal Consulting Provider Notified: Yes Person Notified: MICHELLE ARELLANO Date Notified: 09/03/16 Time Notified: 09:15 08/31/16 08:22 Consult to Anesthesiology [CONS] Routine Consulting Provider: Reason for Anesthesiology: Pre-op Clearance 08/31/16 08:23 Consult to Physician [CONS] Routine Comment: cholecystectomy tues post ERCP Consulting Provider: Bjorn Cherry III. Consulting Provider Notified: Yes Consult to Specialist Group: Gastroenterology Person Notified: aware Date Notified: 08/31/16 Time Notified: 10:19 Discharging clinician: Solange Hopper MD
[2016-09-09 10:53] VITALS: BP 117/69
--- NOTE | 2016-09-09 14:15 | Pathology Report from [facility] ---
[facility] [place] : [id number] PATIENT NAME : Chelo Cardoza ORDERING DR : CAYDEN BONILLA III, MD CLINICAL HX: Choledocholethiasis with obstruction POST-OP DX: Same SPECIMEN INFO: Gallbladder GROSS DESCRIPTION: Received in formalin labeled CHELO CARDOZA is an intact gallbladder measuring 9.7 x 2.6 cm. The serosa is smooth velez santamaria with a few adhesions present. The gallbladder wall has a thickness of 0.3 cm. The mucosa is dull velez pink. Opening the gallbladder reveals faceted yellow gold stones measuring 5.5 x 6 cm collectively with stones also located in the cystic duct. Box Fabricator sections are submitted in one cassette. DIAGNOSIS FOR CHELO CARDOZA: GALLBLADDER: Chronic cholecystitis. Cholelithiasis. No evidence of malignancy. COLLECTED DATE: 09/05/2016 [facility] [place] DATE: 09/06/2016 ELECTRONICALLY SIGNED BY: Eunice Dickson III, M.D. 09/06/2016 - 9:27:31 [facility] [place]
== END 2016-09-09 13:35 | disposition home or self-care (01) | DRG 415 ==
LOC: N.ED 18:11 → SUATTDRO 19:56 → N.EDINP 19:56 → N.5E 21:49
PROVIDERS: ADMIT Internal Medicine; ATTEND Internal Medicine
PROC: LAPCHOL (2016-09-04 13:14)

== ENCOUNTER 2016-10-16 16:00 | Inpatient (IN) ==
[2016-10-16] MEDS ORDERED: ONDANSETRON 4 MG/2 ML VIAL IV STA (16:47)
[2016-10-16] MEDS ORDERED: HYDROmorphone 2 MG/1 ML VIAL IV STA ×2 (16:47→19:40)
[2016-10-16] MEDS ORDERED: PANTOPRAZOLE 40 MG VIAL IV STA (16:47)
[2016-10-16] MEDS ORDERED: SODIUM CHLORIDE 0.9% 500 ML IV STA (16:47)
--- NOTE | 2016-10-16 16:49 | Emergency Department Note ---
Paul Gould Brittany, am scribing for, and in the presence of, Ricky Overton MD 16:41. Brooklynn Gould Charles R, MD, personally performed the services described in this documentation, ascribed by Lyla Miller in my presence, and it is both accurate and complete 649 . Arrival - Arrival Chief Complaint: Abdominal / Flank Pain Stated Complaint: acting different after procedure this morning ED Nursing Triage Note: Mother reports patient had ERCP done earlier today, was instructed not to give patient any pain medicine. States patient started " acting crazy" after getting home from procedure. Also reports two episodes of vomiting. AOX4 now, but states she is just in "too much pain". Mode of Arrival: Wheelchair Limitations: No Limitations Source: Guardian, RN Notes Reviewed Time Seen by Provider: 10/16/16 16:16 - History of Present Illness HPI Narrative: Patient is a 26 y/o black female presenting to the ED accompanied by parents with for further evaluation of confusion and abdominal pain which onset earlier today. History will be provided by patient's mother. Mother reports that patient had an ERCP performed today here at [facility] to remove some of the gallstones that were retained in the bile duct s/p Open Cholecystectomy. She states that prior to procedure she was instructed not to provide patient with no medications. Since arrival home this evening, mother notes that patient began to display acute onset of confusion along with abdominal pain and right shoulder pain. She states that patient has not been acting herself, but has been "acting crazy and talking out of her head." Denies there being a possibility of due to patient's history of Tubal Ligation. It is notable that patient is balled up into the position, grunting in pain. She does appear to be altered and very much in pain. No other complaint/pain. Onset (ago): hour(s) Consistency: constant Date of Last Menstrual Period: 10/05/16 Allergies/Adverse Reactions: Allergies Allergy/AdvReac Type Severity Reaction Status Date / Time No Known Allergies Allergy Verified 08/31/14 11:21 Home Medications: Home Medications Medication Instructions Recorded Confirmed Type HYDROcodone/ACETAMIN 7.5-325 1 - 2 tablet PO Q4-6H PRN #40 09/06/16 10/16/16 Rx [[place] 7.5-325] tablet Cholestyramine [Questran] 4 gm PO DAILY #30 tablet 09/09/16 10/16/16 Rx Polyethylene Glycol Powder 17 gm PO DAILY PRN 09/09/16 10/16/16 Rx [Miralax] Ursodiol [Actigall] 300 mg PO BID #60 capsule NS 10/16/16 10/16/16 Rx Review of System - Review of System ROS unobtainable: due to mental status (patient is altered appearing, groaning in pain and does not provide any history whatsoever) - Review of System Gastrointestinal: Present: abdominal pain, nausea, vomiting Neurological: Present: confusion Medical,Surgical,& Family Hx - Medical History Neurology: History of: Migraine No history of: Seizures Respiratory: History of: Obstructive Sleep Apnea Renal: No history of: Renal Problems Genitourinary: No history of: Bladder Problem, Kidney Stones Gastrointestinal: History of: GERD Musculoskeletal: No history of: Back/Neck Problems Hematology: History of: Anemia No history of: Blood Transfusion Reaction, Sickle Cell Disease Other: History of: Miscellaneous Medical Problems (transfusion in 2014 ) No history of: Anesthesia Reactions, Cancer - Surgical History Cardiac Surgeries: Patient Denies: Cardiac Catheterization HEENT Surgeries: Surgical HX of: Tonsilectomy & Adenoidectomy Patient denies: Eye Surgery Abdominal Surgeries: Surgical HX of: Cholecystectomy (GALLSTONES), EGD Patient denies: Appendectomy, Colonoscopy, Hernia Repair Reproductive Surgeries: Surgical HX of;: Section, Tubal Ligation Patient denies;: Breast Surgery Orthopedic Surgeries: Patient denies;: Orthopedic Surgery - Family History Family History: Reports;: Family Diabetes (father), Family Hypertension (mother) , Family Stroke Denies;: Family Cancer - Social History Smoking Status: Never smoker Frequency of Alcohol Use: None Type of Drug Use: None Exam Vital Signs: Vital Signs Temperature 98.5 F 10/16/16 16:22 Pulse Rate 77 10/16/16 18:30 Respiratory Rate 22 10/16/16 18:30 Blood Pressure 121/66 10/16/16 18:30 O2 Sat by Pulse Oximetry 98 10/16/16 18:30 - General General appearance: alert, in distress (appears uncomfortable, balled into the position secondary to pain ), other (does appear to be altered, and is groaning in pain) - Head Head exam: Present: atraumatic, normocephalic, normal inspection - Eye Eye exam: Present: normal appearance, PERRL, EOMI - ENT ENT exam: Present: normal exam, normal oropharynx - Neck Neck exam: Present: normal inspection - Chest Chest inspection: Present: normal inspection - Respiratory Respiratory exam: Present: normal lung sounds bilaterally - Cardiovascular Cardiovascular exam: Present: regular rate, normal rhythm, normal heart sounds - Abdominal Exam Abdominal exam: Present: soft, tenderness (epigastric, RUQ tenderness to palpation), hypoactive bowel sounds, incision (scar consistent with open Cholecystectomy). Absent: guarding, rebound, normal bowel sounds - Extremities Exam Extremities exam: Present: normal inspection - Back Exam Back exam: Present: normal inspection - Neurological Exam Neurological exam: Present: alert, CN II-XII intact. Absent: oriented X3 ( patient is altered appearing and does not provide any history whatsoever, she is balled into the position and groans in pain), motor sensory deficit - Skin Skin exam: Present: warm, dry Course - Consultations Consultation #1: Talked to Dr. Bernal, he stated that patient has had ERCP performed x2 prior to today. He reported that when she had an Open Cholecystectomy performed the 15 gallstones retained in the bile duct were not removed and have since remained. He stated that with todays ERCP he was only able to remove 3 of the 15 gallstones that are clumped together in the bile duct. Per Dr. Bernal, patient has exhibited similar acute onset of altered mental status after each ERCP performed. He states that this may possibly be related to either the anesthesia or narcotics, but she has required hospitalization after each episode. He instructed me to admit the patient. Time: 16:56 Consultation #2: Spoke to Dr. Golden surgeon rat poisoner he recommended based on the CT findings of admit to hospital medicine give antibiotics consult him consult GI and possibly interventional radiology Time: 19:16 Consultation #3: Hospitalist will admit patient Time: 19:27 Results - Labs CBC & BMP: 10/16/16 17:48 10/16/16 17:48 Lab Results: I have reviewed the patients labs Labs: Laboratory Tests 10/16/16 10/16/16 17:48 17:52 WBC 11.4 D RBC 3.91 Hgb 10.7 L Hct 34.0 L MCHC 31.5 L Plt Count 236 Neut % (Auto) 92.4 H Lymph % (Auto) 3.4 L Neut # (Auto) 10.5 H Lymph # (Auto) 0.4 L Urine Color Yellow Urine Appearance Cloudy Urine pH 7.0 Ur Specific [place] 1.013 Urine Protein Negative Urine Glucose (UA) Negative Urine Ketones 20 Urine Blood Negative Urine Nitrate Negative Urine Bilirubin Negative Urine Urobilinogen < 2.0 H Urine Leukocytes Moderate H Urine WBC 9 Ur Squamous Epith Cells Moderate Amorphous Crystals Occasional Urine Mucus Occasional Laboratory Tests 10/16/16 17:48 Ammonia 16 Laboratory Tests 10/16/16 17:48 Sodium 139 Potassium 3.8 Chloride 104 Carbon Dioxide 27 BUN 8 Creatinine 0.80 Glucose 123 H AST 112 H ALT 75 H Alkaline Phosphatase 147 H Globulin 4.0 H Albumin/Globulin Ratio 0.9 L Laboratory Tests 10/16/16 17:48 Total Counted 100 Segmented Neutrophils 92 H Lymphocytes 7 L Monocytes 1 L Platelet Estimate Normal Hypochromasia Slight - Diagnostic Findings Procedure: Abdominal x-ray: report reviewed by me (Internal improvement in gaseous distention of bowel.), CT Abdomen and Pelvis: report reviewed by me (1. Under the left diaphragm, there is a flattened fluid and air collection, which exerts mild mass effect on the adjacent left lobe of the liver. This raises concern for abscess. 2. The intrahepatic ducts demonstrate edema, cholangeitis cannot be excluded. 3. In the gallbladder fossa, there is fluid density and small specks of air, which may be related to the ERCP from today. No extrahepatic ductal dilatation is seen. 4. Small amount of free fluid in the pelvis. ), CT: report reviewed by me (CT Head: No abnormality is seen.) Critical Care Time Critical Care Time: Yes Total Critical Care Time: 60 Disposition Clinical Impression: Choledocholithiasis with obstruction, UTI (urinary tract infection), Abdominal pain, Air-fluid collection under the diaphragm, Confusion, Nausea & vomiting Case discussed with: patient, patient's family Disposition: Still a Patient Condition: Guarded Time of Disposition: 19:29
--- NOTE | 2016-10-16 17:32 | XRay Report ---
2 view abdomen. Indication: Generalized abdominal pain. Comparison: Exam from earlier today. The heart is upper limits of normal in size. The lung bases are clear. No free air is identified. A biliary stent projects over the right upper quadrant. Surgical clips are seen in the gallbladder fossa. Contrast material is noted within small intestine. There is gaseous distention of small and large intestine, significantly improved from the previous exam. No organomegaly. Tubal ligation clips within the pelvis. Phlebolith in the right pelvis. No bony abnormality. Impression: Interval improvement in gaseous distention of bowel. PROCEDURE INTERPRETED AT [facility] DEPARTMENT OF RADIOLOGY Final Report Signed by: Dr. Patience Cavanaugh
[2016-10-16] MEDS ORDERED: PANTOPRAZOLE 40 MG VIAL IV ONE (17:48)
[2016-10-16] MEDS ORDERED: ONDANSETRON 4 MG/2 ML VIAL ONE ×2 (17:48→19:43)
[2016-10-16] MEDS ORDERED: HYDROmorphone 2 MG/1 ML VIAL ONE ×2 (17:49→19:43)
[2016-10-16 17:57] LABS: Basophils % 0.1 % (0.0-0.8); Hemoglobin 10.7 GM/DL (12.0-16.0); Immature Granulocytes % 0.4 %; Immature Granulocytes Absolute 0.05 #; Lymphocytes # 0.4 10*3/uL (1.4-4.0); Lymphocytes % 3.4 % (21.3-54.2); Mean Corpuscular HGB Conc 31.5 GM/DL (32-36); Mean Corpuscular Hemoglobin 27 PG (27-34); Mean Platelet Volume 10.6 FL (9.6-12.0); Monocytes # 0.4 10*3/uL (0.11-0.8); Monocytes % 3.7 % (1.7-12.7); Neutrophils # 10.5 10*3/uL (1.4-7.4); Neutrophils % 92.4 % (38.7-73.9); Platelet Count 236 T/CUMM (130-400); Red Blood Count 3.91 MC/CUMM (3.8-5.5); White Blood Count 11.4 T/CUMM (4-12)
[2016-10-16 18:05] LABS: Amorphous Crystals,Urine Occasional /HPF (Few); Apearance,Urine CLOUDY (Clear); Bilirubin,Urine Negative (Negative); Blood, Urine Negative (Negative); Glucose,Urine (UA) Negative (Negative); Ketones,Urine 20 mg/dL (Negative); Mucus,Urine Occasional /LPF (Occasional); Nitrite,Urine Negative (Negative); Protein,Urine Negative; Squamous Epithelial Cell,Urine Moderate /HPF (0-10); Urine Color Yellow (Yellow); Urine Specific Gravity 1.013 (1.001-1.035); Urine Urobilinogen < 2.0 EU/DL (0.2-1.0); WBC,Urine 9 /HPF (0-6)
[2016-10-16 18:16] LABS: Lactic Acid 1.6 MMOL/L (0.4-2.0)
[2016-10-16 18:17] LABS: Albumin 3.9 G/DL (3.4-5.0); Bilirubin,Total 0.7 MG/DL (0.2-1.0); Calcium 9.4 MG/DL (8.5-10.1); Magnesium 1.9 MG/DL (1.8-2.4); Osmolality,Calculated 275.5 MOS/KG (273-304); Potassium 3.8 MMOL/L (3.5-5.1); Total Protein 7.9 G/DL (6.4-8.3)
--- NOTE | 2016-10-16 18:33 | CT Report ---
CT of the head without contrast. Indication: Altered mental status and confusion. Comparison: September 10, 2011. The ventricles are normal in size and configuration. There is no mass effect, midline shift, or area of hemorrhage. No ischemic lesions are seen. The calvarium is intact. The included paranasal sinuses and the mastoid air cells are clear. Impression: No abnormality is seen. The CT exam was performed using one or more of the following dose reduction techniques: Automated exposure control, adjustment of the mA and/or kV according to patient size, or use of iterative reconstruction technique. PROCEDURE INTERPRETED AT [facility] DEPARTMENT OF RADIOLOGY Final Report Signed by: Dr. Patience Cavanaugh
--- NOTE | 2016-10-16 19:02 | CT Report ---
CT of the abdomen and pelvis with intravenous contrast. There is some bowel contrast present, probably from the previous ERCP. No previous study. Indication: Generalized abdominal pain following ERCP. The heart is enlarged. There is no pleural or pericardial effusion. There are moderately severe areas of hypoaeration in platelike atelectasis within the lung bases. At the high convexity of the right lobe of the liver, there is a 7 mm fatty lesion. The liver size is normal. The liver density is normal. There is slight low density around the intrahepatic ducts, which may represent some edema rather than dilatation. In the gallbladder fossa, low density is seen around a portion of the stents, with small foci of air in this location which may be from the ERCP procedure. There is no extrahepatic biliary ductal dilatation. Under the left diaphragm, above the left lobe of the liver and a small portion of the spleen, below the heart, there is a oblong flattened collection of fluid and air without a thick rind. It measures 3.8 cm AP dimension, 1.7 cm craniocaudal dimension, and 8.2 cm transverse dimension. It raises concern for abscess collection. The spleen has a normal appearance. The adrenal glands have a normal appearance. The kidneys have a normal appearance. The urinary bladder has a normal appearance. The bowel dilatation has significantly improved compared to an initial KUB earlier today. There is minimal free fluid in the right pelvis anteriorly, and in the posterior cul-de-sac. Follicular cysts are seen on each ovary. There has been a tubal ligation. The bony structures are unremarkable. Impression: 1. Under the left diaphragm, there is a flattened fluid and air collection, which exerts mild mass effect on the adjacent left lobe of the liver. This raises concern for abscess. 2. The intrahepatic ducts demonstrate edema, cholangeitis cannot be excluded. 3. In the gallbladder fossa, there is fluid density and small specks of air, which may be related to the ERCP from today. No extrahepatic ductal dilatation is seen. 4. Small amount of free fluid in the pelvis. The CT exam was performed using one or more of the following dose reduction techniques: Automated exposure control, adjustment of the mA and/or kV according to patient size, or use of iterative reconstruction technique. PROCEDURE INTERPRETED AT [facility] DEPARTMENT OF RADIOLOGY Final Report Signed by: Dr. Patience Cavanaugh
[2016-10-16] MEDS ORDERED: CIPROFLOXACIN INJ 400 MG in PREMIX 1 EACH IV STA (19:08)
[2016-10-16] MEDS ORDERED: cefTRIAXone 1,000 MG in SODIUM CHLORIDE 0.9% 100 ML IV STA (19:08)
[2016-10-16] MEDS ORDERED: cefTRIAXone 1,000 MG VIAL ONE (19:19)
[2016-10-16] MEDS ORDERED: CIPROFLOXACIN 400 MG/200 ML PREMIX IV ONE (19:19)
[2016-10-16] MEDS ORDERED: SODIUM CHLORIDE 0.9% 100 ML IV ONE (19:20)
[2016-10-16 19:22] LABS: Hypochromasia Slight; Lymphocytes 7 % (20-55); Platelet Estimate Normal; Segmented Neutrophils 92 % (50-85); Total Cells Counted 100
[2016-10-16] MEDS ORDERED: ONDANSETRON 4 MG/2 ML VIAL IV ONE (19:40)
--- NOTE | 2016-10-16 19:46 | XRay Report ---
Portable chest. Indication: Upper abdominal pain, confusion, and atelectasis. The heart is normal in size. There is improvement in the larger platelike areas of atelectasis within the lung bases. Hypoaeration persists. No pneumothorax. The pulmonary vasculature is normal. Impression: Basilar hypoaeration, improvement compared to the previous study. PROCEDURE INTERPRETED AT [facility] DEPARTMENT OF RADIOLOGY Final Report Signed by: Dr. Patience Cavanaugh
--- NOTE | 2016-10-16 20:22 | Hospitalist History & Physical ---
Assessment and Plan (1) Abdominal pain Status: Acute Assessment and plan: The patient is admitted to hospital with abdominal pain. CT scan shows some fluid collection with air above the left lobe of the liver which may be a postoperative finding. The patient does not appear to be septic. Lactic acid is low. The patient will be treated with Levaquin and Flagyl. Will obtain consultation with with Dr. Cherry and Dr. Bernal. Current Visit: Yes Qualifiers: Abdominal location: generalized Qualified Code(s): R10.84 - Generalized abdominal pain (2) Status post cholecystectomy Status: Acute Current Visit: No History of Present Illness Chief complaint: Abdominal pain History of present illness: Ms. Cardoza is a 26 year old female with complicated biliary disease. The patient required open cholecystectomy with common bile duct exploration on September 04. Cholangiogram was performed at that time and the small common bile duct was seen to be packed with stones. The patient recovered her surgery and then had ERCP. the ERCP was repeated today by Dr. Bernal. The patient has a stent in place to drain the bile and the patient has stones remaining in the duct. Dr. Jo Ann Tsai noted that her duct was small and dense. Following today's ERCP the patient returned home. She developed progressive pain. Her abdominal pain is moderate, continuous, and worsening. The pain gets worse with movement. The patient has had some subjective fever and minimal diaphoresis. The patient denies angina shortness of breath or dysuria. The patient is now admitted the hospital for further evaluation of abdominal pain after ERCP. Home Medications Medication Instructions Recorded Confirmed Type HYDROcodone/ACETAMIN 7.5-325 1 - 2 tablet PO Q4-6H PRN #40 09/06/16 10/16/16 Rx [[place] 7.5-325] tablet Cholestyramine [Questran] 4 gm PO DAILY #30 tablet 09/09/16 10/16/16 Rx Polyethylene Glycol Powder 17 gm PO DAILY PRN 09/09/16 10/16/16 Rx [Miralax] Ursodiol [Actigall] 300 mg PO BID #60 capsule NS 10/16/16 10/16/16 Rx Allergies Allergy/AdvReac Type Severity Reaction Status Date / Time No Known Allergies Allergy Verified 08/31/14 11:21 Medical,Surgical,& Family Hx - Medical History Neurology: History of: Migraine No history of: Seizures Respiratory: History of: Obstructive Sleep Apnea Renal: No history of: Renal Problems Genitourinary: No history of: Bladder Problem, Kidney Stones Gastrointestinal: History of: GERD Musculoskeletal: No history of: Back/Neck Problems Hematology: History of: Anemia No history of: Blood Transfusion Reaction, Sickle Cell Disease Other: History of: Miscellaneous Medical Problems (transfusion in 2015 ) No history of: Anesthesia Reactions, Cancer - Surgical History Cardiac Surgeries: Patient Denies: Cardiac Catheterization HEENT Surgeries: Surgical HX of: Tonsilectomy & Adenoidectomy Patient denies: Eye Surgery Abdominal Surgeries: Surgical HX of: Cholecystectomy (GALL[facility]ONES), EGD Patient denies: Appendectomy, Colonoscopy, Hernia Repair Reproductive Surgeries: Surgical HX of;: Section, Tubal Ligation Patient denies;: Breast Surgery Orthopedic Surgeries: Patient denies;: Orthopedic Surgery - Family History Family History: Reports;: Family Diabetes (father), Family Hypertension (mother) , Family Stroke Denies;: Family Cancer - Social History Smoking Status: Never smoker Frequency of Alcohol Use: None Type of Drug Use: None Marital Status: Single Lives With:: Parent Functional capacity: independent ambulation 12 point system: reviewed and no additional remarkable complaints except as stated Exam - Constitutional Vitals: Period Temp Pulse Resp BP Sys/Silvestre Pulse Ox Last 24 Hr 98.5 F-98.5 F 74-87 14-22 107-121/59-74 98-100 Exam: Constitutional System: Moderate distress. No tremulousness. Minimal diaphoresis Head: Normocephalic, atraumatic. Ears, Nose and Throat System: No evidence of Otitis or Mastoiditis. No epistaxis or discharge Eyes System: Pupils equal, round, and reactive. Extraocular muscles intact. Neck: Supple, without adenopathy, No jugular venous distention. No thyromegaly , neck mass, or prior surgery apparent. Respiratory System: Chest clear to auscultation. Cardiovascular System: Heart with regular rate and rhythm. No murmur. GI System: Abdomen soft, moderately tender. Hypo-active bowel sounds present. Musculoskeletal System: limbs with no pedal edema. Full distal pulses. Neurological System: No discernable sensory deficit. No aphasia Psychiatric System: Conversation is rational Results - Labs CBC & BMP: 10/16/16 17:48 10/16/16 17:48 Lab Results: I have reviewed the past 24 hour labs
[2016-10-16] MEDS ORDERED: ONDANSETRON 4 MG/2 ML VIAL IV PRN (21:31)
[2016-10-16] MEDS: HYDROmorphone 2 MG/1 ML VIAL IV PRN (21:43)
[2016-10-16] MEDS: metroNIDAZOLE INJ 500 MG in PREMIX 1 EACH IV SCH (22:55)
[2016-10-16] MEDS: DEXTROSE 5% NACL 0.45% 1,000 ML IV SCH (22:55)
[2016-10-17] MEDS: HYDROmorphone 2 MG/1 ML VIAL IV PRN ×2 (03:15→09:03)
[2016-10-17] MEDS: metroNIDAZOLE INJ 500 MG in PREMIX 1 EACH IV SCH ×3 (05:29→17:01)
[2016-10-17 07:08] LABS: Basophils % 0.1 % (0.0-0.8); Hematocrit 31.6 VOL% (35.7-47.0); Hemoglobin 9.9 GM/DL (12.0-16.0); Immature Granulocytes % 0.7 %; Lymphocytes # 0.5 10*3/uL (1.4-4.0); Lymphocytes % 3.5 % (21.3-54.2); Mean Corpuscular HGB Conc 31.3 GM/DL (32-36); Mean Corpuscular Hemoglobin 27 PG (27-34); Mean Corpuscular Volume 87.5 FL (87-102); Monocytes # 0.6 10*3/uL (0.11-0.8); Monocytes % 4.1 % (1.7-12.7); Neutrophils # 12.4 10*3/uL (1.4-7.4); Neutrophils % 91.6 % (38.7-73.9); Platelet Count 236 T/CUMM (130-400); Red Blood Count 3.61 MC/CUMM (3.8-5.5); Red Cell Distribution Width 14.2 % (9.3-17.3); White Blood Count 13.6 T/CUMM (4-12)
[2016-10-17 07:28] LABS: Lactic Acid 2.3 MMOL/L (0.4-2.0)
[2016-10-17 07:40] LABS: Albumin 3.2 G/DL (3.4-5.0); Bilirubin,Total 0.7 MG/DL (0.2-1.0); Calcium 8.8 MG/DL (8.5-10.1); Osmolality,Calculated 269.1 MOS/KG (273-304); Potassium 3.9 MMOL/L (3.5-5.1); Total Protein 6.8 G/DL (6.4-8.3)
--- NOTE | 2016-10-17 07:42 | EKG Report ---
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
[2016-10-17 07:43] LABS: Band Neutrophils 6 % (0-10); Hypochromasia 1+; Lymphocytes 6 % (20-55); Microcytosis Slight; Platelet Estimate Adequate; Segmented Neutrophils 85 % (50-85); Total Cells Counted 100
[2016-10-17] MEDS: LEVOFLOXACIN INJ 500 MG in PREMIX 1 EACH IV SCH (09:05)
--- NOTE | 2016-10-17 11:19 | General Surgery Consult Note ---
Assessment and Plan - Time spent with patient Time spent with patient: Greater than 30 minutes (1) UTI (urinary tract infection) Status: Acute Assessment and plan: 26-year-old -[place] female with no previous medical history admitted with abdominal pain and confusion status post ERCP by Dr. Bernal yesterday. Patient is complaining of left shoulder pain and abdominal pain. She does have a fluid collection under the liver and next to the diaphragm which can be causing her referred shoulder pain. Her pain seems to be more in the lower abdomen versus the upper abdomen. She also has a UTI with moderate leukocytes. I have adjusted her pain medications and agree with Levaquin and Flagyl. Dr. Bernal has also been consulted. The fluid collection in the gallbladder fossa is not organized at this time. It is most likely just postoperative changes. She is really not tender in that right upper quadrant and her incision looks good. Dr. Gonzalez has seen and examined patient and will continue to follow. Current Visit: Yes (2) Elevated liver enzymes Status: Acute Current Visit: No (3) Status post cholecystectomy Status: Acute Current Visit: No (4) Abdominal pain Status: Acute Current Visit: Yes Qualifiers: Abdominal location: generalized Qualified Code(s): R10.84 - Generalized abdominal pain (5) Confusion Status: Acute Current Visit: Yes History of Present Illness Chief complaint: Abdominal pain History of present illness: Ms. Cardoza is a 26 year old female with no previous medical history admitted by the hospitalist service on 10/16/2016 with abdominal pain and subjective fevers. Patient had been admitted in late August with jaundice due to biliary obstruction. Dr. Bernal performed an ERCP on 09/03/2016 and found choledocholithiasis. He removed multiple stones and performed a sphincterotomy , started Actigall and planned to repeat ERCP in 6 weeks to remove the rest of stones. He also found an occluded cystic duct and recommended surgery. Dr. Jo Ann JAIN performed laparoscopic converted to an open cholecystectomy on 2016. She still had stones in her common bile duct but this was managed with Actigall and the repeat ERCP. This repeat ERCP was performed yesterday, [address] Bernal. He found persistent choledocholithiasis with several stones removed but multiple remained with inability to isolate with the balloon catheter. Biliary stent was placed, Actigall continued and another repeat ERCP in 4-6 weeks versus surgical exploration of the common bile duct will be needed. Patient went home and return to the emergency room with confusion, increased abdominal pain and subjective fevers. CT scan showed fluid and air collection adjacent to the left lobe of the liver under the diaphragm with edematous intrahepatic ducts with no extrahepatic ductal dilation. Upon exam patient is moderately uncomfortable due to abdominal pain. She complains mostly in the left shoulder and lower abdomen with minimal in the epigastric and right upper quadrant. She denies headache, chest pain, shortness of breath , constipation, or lower extremity edema. Her incision looks good, she is mildly tachycardic with pulse rate at 108 and she is running low-grade fevers. WBCs elevated at 13.6 and lactic acid up to 2.3 this morning. She also has a urinary tract infection with moderate leukocytes. She is currently on Levaquin and Flagyl. Dr. Gonzalez who is covering for Dr. Cherry the third has been consulted to evaluate. Home Medications Medication Instructions Recorded Confirmed Type HYDROcodone/ACETAMIN 7.5-325 1 - 2 tablet PO Q4-6H PRN #40 09/06/16 10/16/16 Rx [[place] 7.5-325] tablet Cholestyramine [Questran] 4 gm PO DAILY #30 tablet 09/09/16 10/16/16 Rx Polyethylene Glycol Powder 17 gm PO DAILY PRN 09/09/16 10/16/16 Rx [Miralax] Ursodiol [Actigall] 300 mg PO BID #60 capsule NS 10/16/16 10/16/16 Rx Allergies Allergy/AdvReac Type Severity Reaction Status Date / Time No Known Allergies Allergy Verified 08/31/14 11:21 Medical,Surgical,& Family Hx - Medical History Neurology: History of: Migraine No history of: Seizures Respiratory: History of: Obstructive Sleep Apnea Renal: No history of: Renal Problems Genitourinary: No history of: Bladder Problem, Kidney Stones Gastrointestinal: History of: GERD Musculoskeletal: No history of: Back/Neck Problems Hematology: History of: Anemia No history of: Blood Transfusion Reaction, Sickle Cell Disease Other: History of: Miscellaneous Medical Problems (transfusion in 2014 ) No history of: Anesthesia Reactions, Cancer - Surgical History Cardiac Surgeries: Patient Denies: Cardiac Catheterization HEENT Surgeries: Surgical HX of: Tonsilectomy & Adenoidectomy Patient denies: Eye Surgery Abdominal Surgeries: Surgical HX of: Cholecystectomy (GALLSTONES august 2016), EGD Patient denies: Appendectomy, Colonoscopy, Hernia Repair Reproductive Surgeries: Surgical HX of;: Section, Tubal Ligation Patient denies;: Breast Surgery Orthopedic Surgeries: Patient denies;: Orthopedic Surgery - Family History Family History: Reports;: Family Diabetes (father), Family Hypertension (mother) , Family Stroke Denies;: Family Cancer - Social History Smoking Status: Never smoker Frequency of Alcohol Use: None Type of Drug Use: None Review of systems: A complete 10 system review of systems was obtained and pertinent positives and negatives per HPI Exam - Constitutional Vitals: Period Temp Pulse Resp BP Sys/Silvestre Pulse Ox Last 24 Hr 97.1 F-99.4 F 74-108 14-22 107-129/59-87 94-100 Exam: Constitutional System: Moderate distress. No tremulousness. Head: Normocephalic, atraumatic. Ears, Nose and Throat System: No evidence of Otitis or Mastoiditis. No epistaxis or discharge Eyes System: Pupils equal, round, and reactive. Extraocular muscles intact. Neck: Supple, without adenopathy, No jugular venous distention. No thyromegaly, neck mass, or prior surgery apparent. Respiratory System: Chest clear to auscultation. Cardiovascular System: Heart with regular but tachycardic rate and rhythm. No murmur. GI System: Abdomen soft, moderately tender in lower quadrants, minimal right upper quadrant, well-healed right upper quadrant incision Normo active bowel sounds present. Musculoskeletal System: limbs with no pedal edema. Full distal pulses. Neurological System: No discernable sensory deficit. No aphasia Psychiatric System: Conversation is rational Quality Measures - VTE Contraindication to Pharmacological VTE Prophylaxis: High Risk of Bleeding Results - Labs CBC & BMP: 10/17/16 06:57 10/17/16 06:57 Lab Results: I have reviewed the past 24 hour labs - EKG EKG results: sinus rhythm - Diagnostic Findings Procedure: CT Abdomen and Pelvis: report reviewed by me (Under the left diaphragm, there is a flattened fluid and air collection which exerts mild mass- effect on the adjacent left lobe of the liver. This raises concern for abscess. The intrahepatic ducts demonstrate edema, cholangitis cannot be excluded. In the gallbladder fossa there is fluid density and small specks of air which may be related to the ERCP. No extrahepatic ductal dilation. Small amount of free fluid in the pelvis.), CT: report reviewed by me (CT the head shows no abnormality.)
[2016-10-17] MEDS ORDERED: HYDROmorphone 2 MG/1 ML VIAL IV PRN (11:22)
[2016-10-17] MEDS: DEXTROSE 5% NACL 0.45% 1,000 ML IV SCH ×2 (11:26→22:07)
--- NOTE | 2016-10-17 11:33 | Gastrointestinal Consult Note ---
<Adela Ratliff - Last Filed: 10/17/16 11:34> Assessment and Plan (1) Abdominal pain Status: Acute Assessment and plan: 10/17-post procedure ERCP abdominal pain with nausea and vomiting after discharge yesterday readmitted for continued evaluation. Findings of CT scan noted below. LFTs are noted to be trending downward from discharge following cholecystectomy in August. Afebrile, leukocytosis noted with findings of positive leukocytes in urine. IV Flagyl and Levaquin have been initiated. Continue to monitor at this time. Dr. Golden to consult today. Plan an addendum to follow by Dr. Bernal. Current Visit: Yes Qualifiers: Abdominal location: generalized Qualified Code(s): R10.84 - Generalized abdominal pain History of Present Illness Chief complaint: Abdominal pain History of present illness: Ms. Cardoza is a 26 year old female who was admitted to the hospital on yesterday after returning home from outpatient ERCP. patient was admitted to the hospital in August with elevated LFTs and underwent an ERCP at that time with findings of choledocholithiasis with multiple stones removed following sphincterotomy. She was also found to have an occluded cystic duct. Patient then proceeded to have an open cholecystectomy with common bile duct exploration which was done on September 04. Her intraoperative cholangiogram at that time showed multiple oval filling defects with suspicion for calculi. Patient was discharged from the hospital and returned 6 weeks later, on yesterday, for repeat ERCP. her repeat ERCP on yesterday showed persistent choledocholithiasis with multiple stones there were again removed with multiple still remaining and inability to manipulate the stones with the balloon catheter. Her biliary stent was then replaced and she was discharged home shortly after having abdominal x-ray due to postprocedure pain. Upon discharge on yesterday she was doing better with no complaints of pain and was discharged home with a prescription which was called again to [facility] for Actigall. Patient states that she did not last picker this prescription upon discharge. Later yesterday afternoon patient began having some nausea and vomiting as well as some abdominal pain that she felt was similar to the pain she experienced prior to her cholecystectomy. She also reports some subjective fever and chills as well as left shoulder pain. She returned to the emergency room for further evaluation. On admission she was noted to have elevated transaminases on yesterday however these have trended downward today and if improved from her baseline upon discharge in September. AST 68, ALT 63, alkaline phosphatase 131. She is also noted to have leukocytosis today with an elevation in WBCs at 13.6. Patient also had a urinalysis done on admission with findings of moderate amount of leukocytes with culture pending at present time. Lactic acid is noted to be mildly elevated at 2.3. CT of abdomen with IV contrast on admission yesterday shows flattened fluid and air collection under the left diaphragm exerting mild mass-effect on left lobe of liver, intrahepatic ductal edema, no extrahepatic ductal dilation. Home Medications Medication Instructions Recorded Confirmed Type HYDROcodone/ACETAMIN 7.5-325 1 - 2 tablet PO Q4-6H PRN #40 09/06/16 10/16/16 Rx [[place] 7.5-325] tablet Cholestyramine [Questran] 4 gm PO DAILY #30 tablet 09/09/16 10/16/16 Rx Polyethylene Glycol Powder 17 gm PO DAILY PRN 09/09/16 10/16/16 Rx [Miralax] Ursodiol [Actigall] 300 mg PO BID #60 capsule NS 10/16/16 10/16/16 Rx Allergies Allergy/AdvReac Type Severity Reaction Status Date / Time No Known Allergies Allergy Verified 08/31/14 11:21 Medical,Surgical,& Family Hx - Medical History Neurology: History of: Migraine No history of: Seizures Respiratory: History of: Obstructive Sleep Apnea Renal: No history of: Renal Problems Genitourinary: No history of: Bladder Problem, Kidney Stones Gastrointestinal: History of: GERD Musculoskeletal: No history of: Back/Neck Problems Hematology: History of: Anemia No history of: Blood Transfusion Reaction, Sickle Cell Disease Other: History of: Miscellaneous Medical Problems (transfusion in 2014 ) No history of: Anesthesia Reactions, Cancer - Surgical History Cardiac Surgeries: Patient Denies: Cardiac Catheterization HEENT Surgeries: Surgical HX of: Tonsilectomy & Adenoidectomy Patient denies: Eye Surgery Abdominal Surgeries: Surgical HX of: Cholecystectomy (GALL[facility]ONES august 2016), EGD Patient denies: Appendectomy, Colonoscopy, Hernia Repair Reproductive Surgeries: Surgical HX of;: Section, Tubal Ligation Patient denies;: Breast Surgery Orthopedic Surgeries: Patient denies;: Orthopedic Surgery - Family History Family History: Reports;: Family Diabetes (father), Family Hypertension (mother) , Family Stroke Denies;: Family Cancer - Social History Smoking Status: Never smoker Frequency of Alcohol Use: None Type of Drug Use: None 12 point system: reviewed and no additional remarkable complaints except as stated - Constitutional Constitutional: Present: as per HPI, chills, fever(s) - EENT Eyes: Present: as per HPI Ears: Present: as per HPI Nose, mouth and throat: Present: as per HPI - Cardiovascular Cardiovascular: Present: as per HPI - Respiratory Respiratory: Present: as per HPI - Gastrointestinal Gastrointestinal: Present: as per HPI, abdominal pain, nausea, vomiting - Genitourinary Genitourinary: Present: as per HPI - Musculoskeletal Musculoskeletal: Present: as per HPI - Neurological Neurological: Present: as per HPI - Psychiatric Psychiatric: Present: as per HPI - Endocrine Endocrine: Present: as per HPI - Hematologic/Lymphatic Hematologic/Lymphatic: Present: as per HPI Exam - Constitutional Vitals: Period Temp Pulse Resp BP Sys/Silvestre Pulse Ox Last 24 Hr 97.1 F-99.4 F 74-108 14-22 107-129/59-87 94-100 General appearance: no acute distress, over weight - Head Head exam: Present: normal inspection, normocephalic - Eye Eye exam: Present: other (Lids and conjunctivae unremarked). Absent: scleral icterus - ENT ENT exam: Present: normal exam, normal oropharynx - Neck Neck exam: Present: normal inspection - Respiratory Respiratory exam: Present: clear to auscultation bilaterally. Absent: rales, rhonchi, wheezes - Cardiovascular Cardiovascular exam: Present: regular rate and rhythm. Absent: diastolic murmur , JVD, systolic murmur - GI/Abdominal GI/Abdominal exam: Present: normal bowel sounds, tenderness (Upper quadrant), soft. Absent: ascites, distended, mass, organomegaly - Extremities Exam Extremities exam: Present: normal inspection, full ROM - Back Exam Back exam: Present: normal inspection - Neurological Exam Neurological exam: Present: alert, oriented X3 - Psychiatric Psychiatric exam: Present: normal affect, normal mood - Skin Skin exam: Present: normal color, warm, dry Results - Labs CBC & BMP: 10/17/16 06:57 10/17/16 06:57 Lab Results: I have reviewed the past 24 hour labs - Diagnostic Findings Procedure: CT Abdomen and Pelvis: report reviewed by me Quality Measures - VTE Contraindication to Pharmacological VTE Prophylaxis: High Risk of Bleeding <Alek Bernal - Last Filed: 10/17/16 17:15> History of Present Illness Chief complaint: 3030 History of present illness: Ms. Cardoza is a 26 year old female Exam - Constitutional Vitals: Period Temp Pulse Resp BP Sys/Silvestre Pulse Ox Last 24 Hr 97.1 F-99.4 F 76-108 14-22 107-129/59-87 94-100 Results - Labs CBC & BMP: 10/17/16 06:57 10/17/16 06:57
[2016-10-17] MEDS: PANTOPRAZOLE 40 MG VIAL IV SCH (12:00)
[2016-10-17] MEDS: KETOROLAC 15 MG/1 ML VIAL IV SCH ×2 (12:00→17:01)
--- NOTE | 2016-10-17 13:22 | Hospitalist Progress Note ---
Assessment and Plan (1) UTI (urinary tract infection) Status: Acute Assessment and plan: UA with moderate leukocytes F/u urine culture Current Visit: No Qualifiers: Urinary tract infection type: acute cystitis (2) Abdominal pain Status: Acute Assessment and plan: S/p ERCP Amylase wnl, lipase not checked GI and surgery have been consulted. Current Visit: Yes Qualifiers: Abdominal location: generalized Qualified Code(s): R10.84 - Generalized abdominal pain (3) Sepsis Status: Acute Assessment and plan: Patient did not meet the sepsis criteria when she was admitted She now does with tachycardia and leukocytosis Lactic acid is now elevated Already on fluids and antibiotic Will recheck lactic acid in the am Current Visit: Yes Hospitalist: Subjective Interval history: No acute events overnight. Still with abdominal pain. Exam - Constitutional Vitals: Period Temp Pulse Resp BP Sys/Silvestre Pulse Ox Last 24 Hr 97.1 F-99.4 F 74-108 14-22 107-129/59-87 94-100 General appearance: normal weight - Head Head exam: Present: normocephalic, atraumatic - Eye Eye exam: Present: EOMI Pupils: Present: HANNAH - ENT ENT exam: Present: normal exam - Neck Neck exam: Present: normal inspection - Respiratory Respiratory exam: Present: clear to auscultation bilaterally. Absent: rhonchi, wheezes - Cardiovascular Cardiovascular exam: Present: regular rate and rhythm - GI/Abdominal GI/Abdominal exam: Present: normal bowel sounds, soft. Absent: tenderness, rebound - Extremities Exam Extremities exam: Present: normal inspection - Back Exam Back exam: Present: normal inspection - Neurological Exam Neurological exam: Present: alert, oriented X3 - Psychiatric Psychiatric exam: Present: normal affect, normal mood - Skin Skin exam: Present: warm, intact Results - Labs CBC & BMP: 10/17/16 06:57 10/17/16 06:57 Quality Measures - VTE Contraindication to Pharmacological VTE Prophylaxis: High Risk of Bleeding
[2016-10-18] MEDS: metroNIDAZOLE 500 MG TABLET PO SCH ×5 (00:27→20:07)
[2016-10-18] MEDS: KETOROLAC 15 MG/1 ML VIAL IV SCH ×5 (00:29→20:06)
[2016-10-18 05:11] LABS: Basophils % 0.3 % (0.0-0.8); Eosinophils # 0.1 10*3/uL (0.0-0.87); Eosinophils % 0.9 % (0.00-10.9); Hemoglobin 9.5 GM/DL (12.0-16.0); Immature Granulocytes % 0.6 %; Immature Granulocytes Absolute 0.05 #; Lymphocytes # 0.9 10*3/uL (1.4-4.0); Lymphocytes % 11.6 % (21.3-54.2); Mean Corpuscular HGB Conc 31.7 GM/DL (32-36); Mean Corpuscular Hemoglobin 27 PG (27-34); Mean Corpuscular Volume 86.2 FL (87-102); Mean Platelet Volume 11.1 FL (9.6-12.0); Monocytes # 0.6 10*3/uL (0.11-0.8); Neutrophils # 6.2 10*3/uL (1.4-7.4); Neutrophils % 78.6 % (38.7-73.9); Platelet Count 213 T/CUMM (130-400); Red Blood Count 3.48 MC/CUMM (3.8-5.5); Red Cell Distribution Width 14.2 % (9.3-17.3); White Blood Count 7.9 T/CUMM (4-12)
[2016-10-18 05:34] LABS: Lactic Acid 1.1 MMOL/L (0.4-2.0)
[2016-10-18 05:46] LABS: Calcium 8.7 MG/DL (8.5-10.1); Magnesium 2.1 MG/DL (1.8-2.4); Osmolality,Calculated 270.8 MOS/KG (273-304); Potassium 3.6 MMOL/L (3.5-5.1)
[2016-10-18 06:06] LABS: Anisocytosis Slight; Eosinophils 1 % (0-10); Lymphocytes 10 % (20-55); Macrocytosis Slight; Platelet Estimate Normal; Segmented Neutrophils 84 % (50-85); Total Cells Counted 100
[2016-10-18] MEDS: PANTOPRAZOLE 40 MG VIAL IV SCH (09:15)
[2016-10-18] MEDS: LEVOFLOXACIN INJ 500 MG in PREMIX 1 EACH IV SCH (09:16)
--- NOTE | 2016-10-18 11:03 | Physician Query Form ---
CLICK EDIT DOCUMENT TO SELECT QUERY ANSWER --> OK --> SIGN Carlotta Kee RN Clinical Ne[employer] W) [phone] (f) [phone] [email or web address] PROVIDERS: Make your selection(s) from the choices in EACH section by typing an "x" and enter comments in the comment section. Please use your independent medical judgment in providing your response. This request does not imply that any particular answer is desired or expected. CLINICAL INDICATORS: (Providers should not edit this section) Based on documentation of "Acute onset of confusion along with abdominal pain" "Per Dr. Bernal, patient has exhibited similar acute onset of altered mental status after each ERCP performed. He states that this may possibly be related to either the anesthesia or narcotics, but she has required hospitalization after each episode" "Septic" "Acute UTI" Treated with NS bolus, IV Rocephin, IV Cipro, IV Flagyl, and IV Levaquin. ACUITY: ( x) Acute ( ) Acute on Chronic ( ) Chronic ( ) Clinically unable to determine NATURE: ( ) Delirium due to general medical condition ( ) Dementia ( x) Encephalopathy ( ) Unconscious ( ) Transient level of awareness ( ) Comatose ( ) Locked-in State ( ) Persistent Vegetative State ( ) Other, please specify: ( ) Clinically unable to determine Please indicate the underlying cause of the altered mental status (CHECK ALL THAT APPLY): ( ) Baseline dementia ( ) Alzheimer's disease ( ) Parkinson's disease ( ) Lewy body dementia ( ) Acute stroke ( ) Late effect of stroke ( ) Reactive (from emotional stress, psychological trauma) (x ) Due to narcotics/other drugs ( ) Post procedural delirium ( ) Transient ischemic attack ( ) Generalized cerebral edema ( ) Normal pressure hydrocephalus ( ) Psychiatric illness ( ) Other, please specify: ( ) Clinically unable to determine Please indicate if there is an infection, sepsis, dehydration or specific organ failure that is causing the dementia. Be specific with clarifying the relationship between that process and the mental status change. COMMENTS: PLEASE ALSO DOCUMENT RESPONSE IN PROGRESS NOTES AND/OR DISCHARGE SUMMARY Use of terms such as suspected, likely, or probable (associated with a specific diagnosis that is being evaluated, monitored, or treated as if it exists) are acceptable and can be restated in the discharge summary if not ruled out. MTDD
--- NOTE | 2016-10-18 11:05 | Physician Query Form ---
CLICK EDIT DOCUMENT TO SELECT QUERY ANSWER --> OK --> SIGN Carlotta Kee RN Clinical [place] W) [phone] (f) [phone] [email or web address] PROVIDERS: Make your selection(s) from the choices in EACH section by typing an "x" and enter comments in the comment section. Please use your independent medical judgment in providing your response. This request does not imply that any particular answer is desired or expected. CLINICAL INDICATORS: (Providers should not edit this section) Height: 5'3" Weight: 230 Learning Support Aide BMI: 40.7 If applicable, please provide an associated diagnosis related to the abnormal BMI: BMI of 40 or greater: (x ) Overweight ( ) Obesity ( ) Morbid//Severe Obesity ( ) Obesity with Alveolar Hypoventilation ( ) Weight Gain ( ) BMI is not significant ( ) Other, please specify: ( ) Clinically unable to determine COMMENTS: PLEASE ALSO DOCUMENT RESPONSE IN PROGRESS NOTES AND/OR DISCHARGE SUMMARY Use of terms such as suspected, likely, or probable (associated with a specific diagnosis that is being evaluated, monitored, or treated as if it exists) are acceptable and can be restated in the discharge summary if not ruled out. [facility]
--- NOTE | 2016-10-18 11:24 | General Surgery Progress Note ---
Assessment and Plan - Time spent with patient Time spent with patient: Less than 30 minutes (1) UTI (urinary tract infection) Status: Acute Assessment and plan: 26-year-old -Surinamese female with no previous medical history admitted with abdominal pain and confusion status post ERCP by Dr. Bernal yesterday. Patient is complaining of left shoulder pain and abdominal pain. She does have a fluid collection under the liver and next to the diaphragm which can be causing her referred shoulder pain. Her pain seems to be more in the lower abdomen versus the upper abdomen. She also has a UTI with moderate leukocytes. I have adjusted her pain medications and agree with Levaquin and Flagyl. Dr. Bernal has also been consulted. The fluid collection in the gallbladder fossa is not organized at this time. It is most likely just postoperative changes. She is really not tender in that right upper quadrant and her incision looks good. Dr. Gonzalez has seen and examined patient and will continue to follow. 10/18/2016 patient feels about the same today. Her complaints of left shoulder pain are most likely referred pain from the fluid under her diaphragm. Dr. Minor and Dr. Gonzalez feel this is not an abscess at this time that most likely this is postop changes. Hopefully this will reabsorb and get better over time. Patient's leukocytosis has resolved along with her tachycardia. Her lactic acid is normal this morning. Recommended to patient to take her [place] pills first for pain and then take the IV pain medicine for breakthrough. She verbalized understanding. She also is getting Toradol scheduled and antibiotics. Dr. Jo Ann JAIN will be back on Friday to see if he would undertake surgery versus sending patient to a hepatobiliary surgeon versus waiting. Though symptomatically patient is not improved, objectively she has. There are no signs of cholangitis at this time. Discussed with Dr. Gonzalez. Current Visit: Yes (2) Elevated liver enzymes Status: Acute Current Visit: No (3) Status post cholecystectomy Status: Acute Current Visit: No (4) Abdominal pain Status: Acute Current Visit: Yes Qualifiers: Abdominal location: generalized Qualified Code(s): R10.84 - Generalized abdominal pain (5) Confusion Status: Acute Current Visit: Yes Subjective Narrative: Patient is still having some lower abdominal pain but the biggest complaint is her left shoulder. She states she is drinking some fluids but not really tolerating a diet. She says she is not nauseated but she just has no appetite. Exam - Constitutional Vitals: Period Temp Pulse Resp BP Sys/Silvestre Pulse Ox Last 24 Hr 96.5 F-97.9 F 84-101 18-22 99-117/55-67 94-98 Exam: 26-year-old -Surinamese female, no acute distress, alert and oriented Chest clear CV regular rate and rhythm Abdomen is soft, mildly tender in the lower quadrants, no tenderness in epigastric or right upper quadrant region Extremities no edema Results - Labs CBC & BMP: 10/18/16 04:55 10/18/16 04:55 Lab Results: I have reviewed the past 24 hour labs Quality Measures - VTE Contraindication to Pharmacological VTE Prophylaxis: High Risk of Bleeding
[2016-10-18] MEDS ORDERED: PHENOL 1.4% THROAT SPRAY 177 ML BOTTLE PO PRN (14:45)
--- NOTE | 2016-10-18 14:46 | Hospitalist Progress Note ---
Assessment and Plan (1) UTI (urinary tract infection) Status: Ruled-out Assessment and plan: UA with moderate leukocytes urine culture with no growth Current Visit: No Qualifiers: Urinary tract infection type: acute cystitis (2) Abdominal pain Status: Acute Assessment and plan: S/p ERCP (unable to remove stones) Amylase wnl, lipase not checked GI and surgery have been consulted Discussing possibility of open common bile duct exploration continue antibiotics and pain control Current Visit: Yes Qualifiers: Abdominal location: generalized Qualified Code(s): R10.84 - Generalized abdominal pain (3) Sepsis Status: Acute Assessment and plan: Patient did not meet the sepsis criteria when she was admitted She now does with tachycardia and leukocytosis Lactic acid is now elevated Already on fluids and antibiotic Will recheck lactic acid in the am Current Visit: Yes Hospitalist: Subjective Interval history: No acute events overnight. Patient reports mild improvement in her pain. Reports not being able to eat due to throat pain. Exam - Constitutional Vitals: Period Temp Pulse Resp BP Sys/Silvestre Pulse Ox Last 24 Hr 96.5 F-97.9 F 83-101 18-22 99-140/55-67 94-98 General appearance: normal weight - Head Head exam: Present: normocephalic, atraumatic - Eye Eye exam: Present: EOMI Pupils: Present: HANNAH - ENT ENT exam: Present: normal exam - Neck Neck exam: Present: normal inspection - Respiratory Respiratory exam: Present: clear to auscultation bilaterally. Absent: rhonchi, wheezes - Cardiovascular Cardiovascular exam: Present: regular rate and rhythm - GI/Abdominal GI/Abdominal exam: Present: normal bowel sounds, soft. Absent: tenderness, rebound - Extremities Exam Extremities exam: Present: normal inspection - Back Exam Back exam: Present: normal inspection - Neurological Exam Neurological exam: Present: alert, oriented X3 - Psychiatric Psychiatric exam: Present: normal affect, normal mood - Skin Skin exam: Present: warm, intact Results - Labs CBC & BMP: 10/18/16 04:55 10/18/16 04:55 Quality Measures - VTE Contraindication to Pharmacological VTE Prophylaxis: High Risk of Bleeding
[2016-10-18] MEDS: DEXTROSE 5% NACL 0.45% 1,000 ML IV SCH ×2 (15:20→22:09)
[2016-10-19] MEDS: metroNIDAZOLE 500 MG TABLET PO SCH ×4 (02:06→20:06)
[2016-10-19] MEDS: KETOROLAC 15 MG/1 ML VIAL IV SCH ×4 (02:06→20:06)
[2016-10-19] MEDS: DEXTROSE 5% NACL 0.45% 1,000 ML IV SCH ×3 (06:14→22:09)
[2016-10-19] MEDS: LEVOFLOXACIN INJ 500 MG in PREMIX 1 EACH IV SCH (08:41)
[2016-10-19] MEDS: PANTOPRAZOLE 40 MG VIAL IV SCH (08:43)
--- NOTE | 2016-10-19 09:39 | Hospitalist Progress Note ---
Assessment and Plan (1) Choledocholithiasis with obstruction Status: Acute Assessment and plan: Impression: 1. Choledocholithiasis following cholecystectomy Plan: Await further surgical recommendations. Continue current care for now. This note was completed using [employer] voice recognition software. There may be blindstitch machine operator errors as a result. Current Visit: Yes Qualifiers: Cholecystitis presence: without cholecystitis Qualified Code(s): K80.51 - Calculus of bile duct without cholangitis or cholecystitis with obstruction Hospitalist: Subjective Interval history: Follow-up choledocholithiasis. The patient reports some ongoing abdominal pain. She is not nauseated, and has not vomited. She reports no bowel movement for the past several days. GI and surgery are evaluating; Dr. Cherry will be back on 10/21 to reassess. Exam - Constitutional Vitals: Period Temp Pulse Resp BP Sys/Silvestre Pulse Ox Last 24 Hr 97.4 F-98.7 F 67-90 16-20 92-140/50-65 92-96 Vital signs are noted above. Heart is regular with no murmur or gallop. Lungs are clear with no rales or wheezes. Abdomen has rare bowel sounds. Surgical scars are well-healed. She is awake and alert Results - Labs CBC & BMP: 10/18/16 04:55 10/18/16 04:55 Lab Results: I have reviewed the past 24 hour labs Quality Measures - VTE Contraindication to Pharmacological VTE Prophylaxis: High Risk of Bleeding
[2016-10-20] MEDS: KETOROLAC 15 MG/1 ML VIAL IV SCH ×4 (02:07→21:53)
[2016-10-20] MEDS: metroNIDAZOLE 500 MG TABLET PO SCH ×4 (02:07→21:53)
[2016-10-20] MEDS: DEXTROSE 5% NACL 0.45% 1,000 ML IV SCH ×3 (06:09→19:46)
[2016-10-20] MEDS: LEVOFLOXACIN INJ 500 MG in PREMIX 1 EACH IV SCH (09:12)
[2016-10-20] MEDS: PANTOPRAZOLE 40 MG VIAL IV SCH (09:15)
--- NOTE | 2016-10-20 09:45 | Hospitalist Progress Note ---
Assessment and Plan (1) Choledocholithiasis with obstruction Status: Acute Assessment and plan: Impression: 1. Choledocholithiasis following cholecystectomy Plan: Await further surgical recommendations. No changes planned. This note was completed using [employer] voice recognition software. There may be demand planner errors as a result. Current Visit: Yes Qualifiers: Cholecystitis presence: without cholecystitis Qualified Code(s): K80.51 - Calculus of bile duct without cholangitis or cholecystitis with obstruction Hospitalist: Subjective Interval history: Follow-up choledocholithiasis. The patient continues to tolerate liquids. She says that she is not eating any solid food. She is awaiting final surgical recommendations. Exam - Constitutional Vitals: Period Temp Pulse Resp BP Sys/Silvestre Pulse Ox Last 24 Hr 97.5 F-99.2 F 69-84 16-22 87-138/59-69 92-96 Vital signs are noted above. Heart is regular with no murmur or gallop. Lungs are clear with no rales or wheezes. Abdomen is slightly tender with good bowel sounds. She is awake and alert Results - Labs CBC & BMP: 10/18/16 04:55 10/18/16 04:55 Quality Measures - VTE Contraindication to Pharmacological VTE Prophylaxis: High Risk of Bleeding
--- NOTE | 2016-10-20 12:46 | Event Note ---
Patient still has a little bit of left shoulder pain. No abdominal pain. She has been tolerating clear liquids without problems. Her abdomen is soft nontender and nondistended. CT scan recently performed shows a fluid collection between the left lobe of the liver and diaphragm. There is fluid and air present but it does not appear to be coalesced into an abscess. She has retained common bile duct stones. We will advance her to regular diet today and make her n.p.o. at midnight. Dr. Jo Ann mckeon will be back tomorrow for discussion of definitive care.
[2016-10-21] MEDS: DEXTROSE 5% NACL 0.45% 1,000 ML IV SCH ×2 (03:09→17:10)
[2016-10-21] MEDS: metroNIDAZOLE 500 MG TABLET PO SCH ×4 (03:09→20:30)
[2016-10-21] MEDS: KETOROLAC 15 MG/1 ML VIAL IV SCH ×4 (03:09→20:30)
[2016-10-21] MEDS: LEVOFLOXACIN INJ 500 MG in PREMIX 1 EACH IV SCH (08:30)
[2016-10-21] MEDS: PANTOPRAZOLE 40 MG VIAL IV SCH (08:30)
--- NOTE | 2016-10-21 10:33 | Gastrointestinal Progress Note ---
<MadanpaulinaAdela Franca - Last Filed: 10/21/16 10:31> Assessment and Plan (1) Abdominal pain Status: Acute Assessment and plan: 10/21-no complaints of abdominal pain. Tolerating diet. Dr. Cherry is seen today for further recommendations. Recheck LFTs today. Plan an addendum to followed by Dr. Bernal. 10/17-post procedure ERCP abdominal pain with nausea and vomiting after discharge yesterday readmitted for continued evaluation. Findings of CT scan noted below. LFTs are noted to be trending downward from discharge following cholecystectomy in August. Afebrile, leukocytosis noted with findings of positive leukocytes in urine. IV Flagyl and Levaquin have been initiated. Continue to monitor at this time. Dr. Golden to consult today. Plan an addendum to follow by Dr. Bernal. Current Visit: Yes Qualifiers: Abdominal location: generalized Qualified Code(s): R10.84 - Generalized abdominal pain Gastroenterology - PN: Subj Interval history: CC: Abdominal pain Patient is seen, awake and alert, with family at bedside. States she has not had any abdominal pain throughout the weekend. She has tolerated her diet well at this point. Surgery continues to follow by Dr. Cherry is to see her this morning for any further recommendations. Abdomen is soft, nontender. She has remained afebrile throughout the weekend. No repeat LFTs have been obtained since admission. ROS: Denies shortness of breath or chest pain Exam (Progress Note) - Constitutional Vitals: Period Temp Pulse Resp BP Sys/Silvestre Pulse Ox Last 24 Hr 97.4 F-98.7 F 68-83 18-20 98-126/49-67 93-98 General appearance: normal weight, no acute distress - Head Head exam: Present: normal inspection, normocephalic - Eye Eye exam: Present: other (Lids and conjunctivae are unremarkable). Absent: scleral icterus - ENT ENT exam: Present: normal exam, normal oropharynx - Neck Neck exam: Present: normal inspection - Respiratory Respiratory exam: Present: clear to auscultation bilaterally. Absent: rales, rhonchi, wheezes - Cardiovascular Cardiovascular exam: Present: regular rate and rhythm. Absent: diastolic murmur , JVD, systolic murmur - GI/Abdominal GI/Abdominal exam: Present: normal bowel sounds, soft. Absent: ascites, distended, mass, organomegaly, tenderness - Extremities Exam Extremities exam: Present: normal inspection, full ROM - Back Exam Back exam: Present: normal inspection - Neurological Exam Neurological exam: Present: alert, oriented X3 - Psychiatric Psychiatric exam: Present: normal affect, normal mood - Skin Skin exam: Present: normal color, warm, dry Results - Labs CBC & BMP: 10/18/16 04:55 10/18/16 04:55 Lab Results: I have reviewed the past 24 hour labs <Alek Bernal - Last Filed: 10/21/16 20:33> Exam (Progress Note) - Constitutional Vitals: Period Temp Pulse Resp BP Sys/Silvestre Pulse Ox Last 24 Hr 97.9 F-98.4 F 56-78 18-20 98-156/49-77 95-98 Results - Labs CBC & BMP: 10/18/16 04:55 10/18/16 04:55
[2016-10-21 11:28] LABS: Albumin 2.6 G/DL (3.4-5.0); Bilirubin,Direct 0.2 MG/DL (0.0-0.20); Bilirubin,Indirect 1.1 MG/DL (0.0-1.0); Bilirubin,Total 1.3 MG/DL (0.2-1.0); Total Protein 6.2 G/DL (6.4-8.3)
--- NOTE | 2016-10-21 16:36 | General Surgery Progress Note ---
Assessment and Plan - Time spent with patient Time spent with patient: Less than 30 minutes (1) Choledocholithiasis with obstruction Status: Acute Assessment and plan: Overall she appears to be doing well and her bilirubin is now normal. I discussed her previous operative findings with the patient and also discussed the fact that she still has retained common bile duct stones. Her obstruction has been relieved with ERCP and she does not have evidence of cholangitis. I think that she will need surgical clearance of her bile duct and I have offered to do common bile duct exploration and less likely biliary bypass if needed. I have also discussed the fact that this is not a common procedure in a community setting this is probably a procedure that I might do once every year or 2. I discussed this with her and she is considering whether she will transfer to a tertiary referral center. She is not decided at this visit and says that she will think about it tonight and let me know in the morning what she wants to do. We discussed the procedure in detail along with the risks associated with procedure and she is going to think about it and let me know. Current Visit: Yes Qualifiers: Cholecystitis presence: without cholecystitis Qualified Code(s): K80.51 - Calculus of bile duct without cholangitis or cholecystitis with obstruction Subjective Patient reports: Present: feels better. Absent: still having pain, nausea, vomiting, fever Exam - Constitutional Vitals: Period Temp Pulse Resp BP Sys/Silvestre Pulse Ox Last 24 Hr 97.4 F-98.4 F 62-82 18-20 98-126/49-73 94-98 General appearance: no acute distress - Eye Eye exam: Absent: scleral icterus - ENT Mouth exam: Present: normal voice - Respiratory Respiratory exam: Absent: accessory muscle use - GI/Abdominal GI/Abdominal exam: Present: soft. Absent: distended, tenderness - Neurological Exam Neurological exam: Present: alert, oriented X3 Results - Labs CBC & BMP: 10/18/16 04:55 10/18/16 04:55 Quality Measures - VTE Contraindication to Pharmacological VTE Prophylaxis: High Risk of Bleeding
--- NOTE | 2016-10-21 19:04 | Hospitalist Progress Note ---
Assessment and Plan - Time spent with patient Time spent with patient: Less than 30 minutes (1) Choledocholithiasis with obstruction Status: Acute Assessment and plan: She still has retained common bile duct stones. Her obstruction has been relieved with ERCP and she does not have cholangitis. She failed ERCP stone removal & will need surgical clearance of her bile duct. She has been offered surgery and is thinking about it. Current Visit: Yes Qualifiers: Cholecystitis presence: without cholecystitis Qualified Code(s): K80.51 - Calculus of bile duct without cholangitis or cholecystitis with obstruction (2) Abdominal pain Status: Acute Assessment and plan: Post ERCP abdominal pain. Patient is on Flagyl and Levaquin; no complaints of abdominal pain. Tolerating diet Current Visit: Yes Qualifiers: Abdominal location: generalized Qualified Code(s): R10.84 - Generalized abdominal pain Hospitalist: Subjective Interval history: Ms. Cardoza is a 26 year old female who was admitted to the hospital after returning home from outpatient ERCP. patient was admitted to the hospital in August with elevated LFTs and underwent an ERCP at that time with findings of choledocholithiasis with multiple stones removed following sphincterotomy. She was also found to have an occluded cystic duct. Patient then proceeded to have an open cholecystectomy with common bile duct exploration which was done on September 04. Her intraoperative cholangiogram at that time showed multiple oval filling defects with suspicion for calculi. Patient was discharged from the hospital and returned 6 weeks later, on yesterday, for repeat ERCP. her repeat ERCP on yesterday showed persistent choledocholithiasis with multiple stones there were again removed with multiple still remaining and inability to manipulate the stones with the balloon catheter. Her biliary stent was then replaced and she was discharged home shortly after having abdominal x-ray due to postprocedure pain. Upon discharge she was doing better with no complaints of pain and was discharged home with a prescription which was called again to [facility] for Actigall. Patient states that she did not pickle cutter this prescription upon discharge. Later patient began having some nausea and vomiting as well as some abdominal pain that she felt was similar to the pain she experienced prior to her cholecystectomy. She also reported some subjective fever and chills as well as left shoulder pain. She returned to the emergency room for further evaluation. On admission she was noted to have elevated transaminases however these have trended downward and improved from her baseline upon discharge in September. Exam - Constitutional Vitals: Period Temp Pulse Resp BP Sys/Silvestre Pulse Ox Last 24 Hr 97.4 F-98.4 F 56-82 18-20 98-156/49-77 94-98 General appearance: no acute distress - Head Head exam: Present: normal inspection, normocephalic, atraumatic - Eye Eye exam: Present: EOMI Pupils: Present: HANNAH - ENT ENT exam: Present: normal exam - Neck Neck exam: Present: normal inspection - Respiratory Respiratory exam: Present: clear to auscultation bilaterally - Cardiovascular Cardiovascular exam: Present: regular rate and rhythm - GI/Abdominal GI/Abdominal exam: Present: normal bowel sounds - Extremities Exam Extremities exam: Present: normal inspection Results - Labs CBC & BMP: 10/18/16 04:55 10/18/16 04:55 Quality Measures - VTE Contraindication to Pharmacological VTE Prophylaxis: High Risk of Bleeding
[2016-10-22] MEDS: DEXTROSE 5% NACL 0.45% 1,000 ML IV SCH ×2 (01:34→10:50)
[2016-10-22] MEDS: metroNIDAZOLE 500 MG TABLET PO SCH ×3 (03:07→15:02)
[2016-10-22] MEDS: KETOROLAC 15 MG/1 ML VIAL IV SCH ×2 (03:07→10:40)
--- NOTE | 2016-10-22 07:07 | General Surgery Progress Note ---
Assessment and Plan (1) Choledocholithiasis with obstruction Status: Acute Assessment and plan: Overall she appears to be doing well and her bilirubin is now normal. I discussed her previous operative findings with the patient and also discussed the fact that she still has retained common bile duct stones. Her obstruction has been relieved with ERCP and she does not have evidence of cholangitis. I think that she will need surgical clearance of her bile duct and I have offered to do common bile duct exploration and less likely biliary bypass if needed. I have also discussed the fact that this is not a common procedure in a community setting this is probably a procedure that I might do once every year or 2. I discussed this with her and she is considering whether she will transfer to a tertiary referral center. She is not decided at this visit and says that she will think about it tonight and let me know in the morning what she wants to do. We discussed the procedure in detail along with the risks associated with procedure and she is going to think about it and let me know. 10/22: She denies any abdominal complaints this morning. She is informed me that she wants to go to [facility]. I will contact them this morning and see what our options are. I made it clear that I would be willing to attempt surgery on her but I anticipate it being very difficult. I did discuss her case also at length with Dr. Bernal. Current Visit: Yes Qualifiers: Cholecystitis presence: without cholecystitis Qualified Code(s): K80.51 - Calculus of bile duct without cholangitis or cholecystitis with obstruction Subjective Patient reports: Present: feels better. Absent: still having pain, nausea, vomiting, fever Exam - Constitutional Vitals: Period Temp Pulse Resp BP Sys/Silvestre Pulse Ox Last 24 Hr 97.9 F-99 F 56-68 18-20 117-156/63-77 95-100 General appearance: no acute distress - Eye Eye exam: Absent: scleral icterus - GI/Abdominal GI/Abdominal exam: Present: soft. Absent: distended, tenderness Results - Labs CBC & BMP: 10/18/16 04:55 10/18/16 04:55 Quality Measures - VTE Contraindication to Pharmacological VTE Prophylaxis: High Risk of Bleeding
[2016-10-22] MEDS: PANTOPRAZOLE 40 MG VIAL IV SCH (10:42)
[2016-10-22] MEDS: LEVOFLOXACIN INJ 500 MG in PREMIX 1 EACH IV SCH (10:45)
--- NOTE | 2016-10-22 10:54 | Event Note ---
I discussed the case with Dr. Miller at [facility]. We are getting information over to him to review so that he can look at images to see what the next best course of action would be. I think that she is at a point where from our standpoint she can be discharged home and all of this could be arranged as an outpatient. I would like to see her back in follow-up to make sure that her arrangements to get to [facility] have all been completed. We are forwarding her records and images to his office at [facility].
--- NOTE | 2016-10-22 11:54 | Gastrointestinal Progress Note ---
<MadanpaulinaAdela Franca - Last Filed: 10/22/16 11:51> Assessment and Plan (1) Abdominal pain Status: Acute Assessment and plan: 10/22-tolerating small amount diet. Abdominal pain is improved. Patient for possible outpatient referral to Dr. Miller at [facility]. Plan an addendum to follow Dr. Bernal peer 10/21-no complaints of abdominal pain. Tolerating diet. Dr. Cherry is seen today for further recommendations. Recheck LFTs today. Plan an addendum to followed by Dr. Bernal. 10/17-post procedure ERCP abdominal pain with nausea and vomiting after discharge yesterday readmitted for continued evaluation. Findings of CT scan noted below. LFTs are noted to be trending downward from discharge following cholecystectomy in August. Afebrile, leukocytosis noted with findings of positive leukocytes in urine. IV Flagyl and Levaquin have been initiated. Continue to monitor at this time. Dr. Golden to consult today. Plan an addendum to follow by Dr. Bernal. Qualifiers: Abdominal location: generalized Qualified Code(s): R10.84 - Generalized abdominal pain Gastroenterology - PN: Subj Interval history: CC: Abdominal pain Pt is seen, awake and alert with family at bedside. States she is feeling better today with less abdominal pain. She denies any nausea or vomiting. She is tolerating her diet at this time with poor appetite. Dr. Cherry has seen patient and has discussed with Dr. Miller at [facility] regarding patient's case. Information is still being reviewed at this time by Dr. Miller and tentatively patient could be discharged home and arrange to follow-up at [facility] as outpatient however this is still pending. Abdomen is soft, nontender. ROS: Denies shortness of breath or chest pain Exam (Progress Note) - Constitutional Vitals: Period Temp Pulse Resp BP Sys/Silvestre Pulse Ox Last 24 Hr 97.9 F-99 F 56-72 18-20 117-156/63-77 95-100 General appearance: normal weight, no acute distress - Head Head exam: Present: normal inspection, normocephalic - Eye Eye exam: Present: other (Lids and conjunctive are unremarkable). Absent: scleral icterus - ENT ENT exam: Present: normal exam, normal oropharynx - Neck Neck exam: Present: normal inspection - Respiratory Respiratory exam: Present: clear to auscultation bilaterally. Absent: rales, rhonchi, wheezes - Cardiovascular Cardiovascular exam: Present: regular rate and rhythm. Absent: diastolic murmur , JVD, systolic murmur - GI/Abdominal GI/Abdominal exam: Present: normal bowel sounds, soft. Absent: ascites, distended, mass, organomegaly, tenderness - Extremities Exam Extremities exam: Present: normal inspection, full ROM - Back Exam Back exam: Present: normal inspection - Neurological Exam Neurological exam: Present: alert, oriented X3 - Psychiatric Psychiatric exam: Present: normal affect, normal mood - Skin Skin exam: Present: normal color, warm, dry Results - Labs CBC & BMP: 10/18/16 04:55 10/18/16 04:55 Lab Results: I have reviewed the past 24 hour labs Specialty Discharge - Follow Up or Referrals Follow up with: Bjorn Cherry III., MD [Physician] - 10/29/16 2:15 pm <Alek Bernal - Last Filed: 10/22/16 17:07> Exam (Progress Note) - Constitutional Vitals: Period Temp Pulse Resp BP Sys/Silvestre Pulse Ox Last 24 Hr 97.5 F-99 F 56-72 18-20 117-161/63-87 95-100 Results - Labs CBC & BMP: 10/18/16 04:55 10/18/16 04:55
--- NOTE | 2016-10-22 15:19 | Discharge Summary ---
Hospital Course - Hospital Course Hospital Course: 26-year-old -[place] female with no prior medical history admitted by the hospitalist service on 10/16/2016 with abdominal pain and subjective fevers. She had been admitted in late August with jaundice due to biliary obstruction. Dr. Bernal performed an ERCP on 09/03/2016 and found choledocholithiasis. He removed multiple stones and performed a sphincterotomy, started Actigall and planned to repeat her ERCP in 6 weeks to remove the rest of the stones. She was also found to have an occluded cystic duct and Dr. Jo Ann JAIN performed a laparoscopic converted to an open cholecystectomy on 09/04/2016. Her repeat ERCP was performed on 10/16/[address] Bernal where he found persistent choledocholithiasis with several stones removed but multiple remained with the inability to isolate with the balloon catheter. Biliary stent was placed, Actigall continued and another repeat ERCP in 4-6 weeks was scheduled. Patient went home and return to the emergency room later that evening with confusion increased abdominal pain and fevers. CT Scan showed a fluid and air collection adjacent to the left lobe of the liver under the diaphragm with edematous intrahepatic ducts and no extrahepatic ductal dilation. Patient was in a lot of abdominal and shoulder pain and was also found to have a urinary tract infection. Patient was started on antibiotics and Dr. Gonzalez was consulted who is covering for Dr. Jo Ann JAIN along with Dr. Bernal from GI. Patient's left shoulder pain was referred from the fluid under the rim of the diaphragm that Dr. Gonzalez and Dr. Minor from radiology both felt was not an organized abscess. Patient was watched over the weekend and Dr. Jo Ann JAIN recommended patient see a hepatiobiliary specialist at [place]. He spoke with a Dr. Richard Miller and he agreed to review all of her films. Patient's records have been faxed to his office in the films were [employer] and an appointment will be made for the next week. Patient's abdominal and shoulder pain have now resolved and she is tolerating a diet. She will be discharged home to follow- up with Dr. Miller at [facility] with his first available appointment. We will also go ahead and set her up with Dr. Jo Ann JAIN in 1 week. Care coordination, chart review, and completed discharge paperwork took approximately 50 minutes. - Time spent with patient Time with patient DS: Greater than 30 minutes Diagnosis - Discharge Diagnosis (1) UTI (urinary tract infection) Status: Resolved (2) Elevated liver enzymes Status: Resolved (3) Status post cholecystectomy Status: Resolved (4) Abdominal pain Status: Resolved (5) Confusion Status: Resolved Discharge Plan - Discharge Data Disposition: Disch To Home/Self Care Condition at Discharge: Stable Discharge Diet: advance to your usual diet Activity: resume usual activities as tolerated Hygiene: may shower Driving: other (No driving if taking pain medications) Contact your physician if you experience:: fever over 101, Nausea/Vomiting - Discharge Medications New Ondansetron Tab [Zofran Tab] 4 mg PO Q4H #20 tablet Continue Polyethylene Glycol Powder [Miralax] 17 gm PO DAILY PRN PRN Reason: Constipation Ursodiol [Actigall] 300 mg PO BID #60 capsule NS HYDROcodone/ACETAMIN 7.5-325 [[place] 7.5-325] 1 - 2 tablet PO Q4-6H PRN #40 tablet PRN Reason: Pain Moderate To Severe (4-10) Discontinued Cholestyramine [Questran] 4 gm PO DAILY #30 tablet - Follow Up or Referral Follow Up: Bjorn Cherry III., MD [Physician] - 1 Week - Forms/Instructions Exam - Constitutional Vitals: Period Temp Pulse Resp BP Sys/Silvestre Pulse Ox Last 24 Hr 97.9 F-99 F 56-72 18-20 117-161/63-77 95-100 Exam: 26-year-old -[place] female, no acute distress, alert and oriented Chest clear CV regular rate and rhythm Abdomen soft and nontender Extremities no edema DS: Provider Date of admission: 10/16/16 19:38 Primary care physician: . No PCP Attending physician on admission: Dony Cox DO Consults: 10/16/16 21:31 Consult to Physician [CONS] Routine Comment: biliary obstruction Consulting Provider: Bjorn Cherry III. Person Notified: [email or web address] Date Notified: 10/17/16 Time Notified: 09:29 Consult Notification Comment: DR. CHERRY IS OOT 10/22/16 changed doctors so it will appear on b3 list-rp Consult to Physician [CONS] Routine Comment: post ercp pain/fever Consulting Provider: Alek Bernal Discharging clinician: TIM Herrera Expected date of discharge: 10/22/16
[2016-10-22 16:06] VITALS: BP 137/87
== END 2016-10-22 16:35 | disposition home or self-care (01) | DRG 91 ==
LOC: N.ED 16:00 → SUATTDRO 19:38 → N.EDINP 19:38 → N.2E 20:53
PROVIDERS: ADMIT Internal Medicine; ATTEND Hospitalist